=== PATIENT | female | born 1960 ===

== ENCOUNTER 2017-02-07 15:41 | Emergency (ER) | payer OTHER ==
[2017-02-07 15:41] VITALS: BMI 19.2
[2017-02-07 15:55] VITALS: TEMP 97.6
[2017-02-07] MEDS ORDERED: Sodium Chloride 0.9% 1,000 ML IV STA (16:25)
[2017-02-07 16:41] LABS: BASO # 0.04 K/mm3 (0.0-2.0); BASO % 0.6 % (0.0-3.0); EOS # 0.1 (0.0-0.7); EOS % 1.3 % (1.5-5.0); GRAN # 3.85 (1.4-6.5); GRAN % 60.7 % (50.0-68.0); HEMATOCRIT 39.1 % (36.0-48.0); LYMPH # 1.9 (1.2-3.4); LYMPH % 30.3 % (22.0-35.0); MEAN CELL VOLUME 89.9 fl (80.0-105.0); MEAN CORPUSCULAR HEMOGLOBIN 29.9 pg (25.0-35.0); MEAN CORPUSCULAR HGB CONC 33.2 g/dl (31.0-37.0); MEAN PLATELET VOLUME 10.6 fl (7.0-11.0); MONO # 0.5 (0.1-0.6); MONO % 7.1 % (1.0-6.0); RED CELL DISTRIBUTION WIDTH 13.2 % (11.5-14.5); WHITE BLOOD COUNT 6.3 10^3/ul (4.5-11.0)
[2017-02-07 16:50] LABS: ALB/GLOB RATIO 1.5 (1.1-1.8); ALKALINE PHOSPHATASE 86 U/L (38-126); ALT/SGPT 26 U/L (7-56); AST/SGOT 32 U/L (14-36); BILIRUBIN,TOTAL 0.6 mg/dL (0.2-1.3); BLOOD UREA NITROGEN 16 mg/dL (7-21); CALCIUM 9.9 mg/dL (8.4-10.5); CARBON DIOXIDE 30 mmol/L (21-33); CHLORIDE 103 mmol/L (98-107); GFR AFRICAN-AMERICAN > 60; GLUCOSE,RANDOM 89 mg/dL (70-110); LIPASE 128 U/L (23-300); POTASSIUM 4.5 mmol/L (3.6-5.0); SODIUM 140 mmol/L (132-148); TOTAL PROTEIN 7.5 g/dL (5.8-8.3)
[2017-02-07 16:58] LABS: INR 1.07 (0.93-1.08); PARTIAL THROMBOPLASTIN TIME 29.6 Seconds (25.1-36.5)
[2017-02-07 17:10] LABS: PH,URINE 6.5 (4.7-8.0); URINE BILIRUBIN NEGATIVE (NEGATIVE); URINE BLOOD TRACE-INTACT (NEGATIVE); URINE GLUCOSE (UA) NEGATIVE (NEGATIVE); URINE KETONE NEGATIVE (NEGATIVE); URINE LEUKOCYTE ESTERASE NEGATIVE Leu/uL (NEGATIVE); URINE PROTEIN NEGATIVE mg/dL (<30 mg/dL); URINE UROBILINOGEN 0.2 E.U./dL (<1 E.U./dL)
[2017-02-07 17:13] LABS: URINE APPEARANCE CLEAR (CLEAR); URINE COLOR YELLOW (YELLOW)
--- NOTE | 2017-02-07 17:14 | ED PDOC ---
Arrival/HPI - General Chief Complaint: Abdominal Pain Time Seen by Provider: 02/07/17 15:42 Historian: Patient - History of Present Illness Narrative History of Present Illness (Text): 02/07/17 17:10 56 yo F complains of 2 week history of constant gradually increasing right lower quadrant abdominal pain which radiates to the right mid back, associated with nausea, and an episode of mucus like bright red rectal bleeding 2 weeks ago and 2 episodes today prompting concern and evaluation in the emergency room. Otherwise: (-) vomiting, (-) diarrhea, (-) fever, (-) melena, (-) urinary symptoms, (-) CP, (-) SOB, (-) trauma. Has history of prior abdominal surgery - 2 c-sections. PMD Clinic Past Medical History - Provider Review Nursing Documentation Reviewed: Yes - Past History Past History: No Previous - Infectious Disease Hx of Infectious Diseases: None - Tetanus Immunization Tetanus Immunization: Unknown - Past Medical History Past Medical History: No Previous - Psychiatric Hx Depression: No Hx Emotional Abuse: No Hx Physical Abuse: No Hx Substance Use: No - Past Surgical History Past Surgical History: No Previous - Surgical History Hx Section: Yes (x3) - Suicidal Assessment Feels Threatened In Home Enviroment: No Family/Social History - Physician Review Nursing Documentation Reviewed: Yes Family/Social History: No Known Family HX Smoking Status: Never Smoked Hx Alcohol Use: No Hx Substance Use: No Hx Substance Use Treatment: No Allergies/Home Meds Allergies/Adverse Reactions: Allergies No Known Allergies Allergy (Verified 02/07/17 15:49) Review of Systems - Review of Systems Constitutional: Normal. absent: Fatigue, Weight Change, Fevers Respiratory: Normal. absent: SOB, Cough, Sputum Cardiovascular: Normal. absent: Chest Pain, Palpitations, Edema Gastrointestinal: Normal, Abdominal Pain, Nausea, Hematochezia. absent: Constipation, Diarrhea, Vomiting Genitourinary Female: Normal. absent: Dysuria, Frequency, Hematuria, Vaginal Discharge Musculoskeletal: Normal. absent: Arthralgias, Back Pain, Neck Pain Skin: Normal. absent: Rash, Pruritis, Skin Lesions Neurological: Normal. absent: Headache, Dizziness, Focal Weakness Physical Exam - Physical Exam Narrative Physical Exam (Text): 02/07/17 17:15 GENERAL APPEARANCE: Patient is awake, alert, oriented x 3, in mild painful distress. SKIN: Warm, dry; (-) cyanosis. EYES: (-) conjunctival pallor, (-) scleral icterus. ENMT: Mucous membranes moist. NECK: (-) tenderness, (-) stiffness, (-) lymphadenopathy. CHEST AND RESPIRATORY: (-) rales, (-) rhonchi, (-) wheezes; breath sounds equal bilaterally. HEART AND CARDIOVASCULAR: (-) irregularity; (-) murmur, (-) gallop. ABDOMEN AND GI: (-) distention. Bowel sounds active; (+) mild RLQ tenderness, (-) guarding, (-) rebound, (-) palpable masses, (+) R CVA tenderness. RECTAL : (+) 2 small non-thrombosed hemorrhoids at 6 o'clock, (-) tenderness, (- ) mass, (-) stool impaction. Stool greenish brown in color, guiaic (-). Female EMT pattern marker was present during the entire exam. EXTREMITIES: (-) deformity, (-) edema, (+) distal pulses. NEURO AND PSYCH: Mental status as above; (-) focal findings. Vital Signs Temp Pulse Resp BP Pulse Ox 02/08/17 00:00 82 18 98 02/07/17 17:59 59 L 16 114/71 98 02/07/17 15:54 97.6 F 65 16 109/63 100 Medical Decision Making ED Course and Treatment: 02/07/17 17:13 56 yo F complains of 2 week history of right lower quadrant abdominal pain which radiates to the right mid back, associated with nausea, decreased appetite , and an episode of mucus like bright red rectal bleeding 2 weeks ago and 2 episodes today. Patient is refusing analgesics at this time. DDx: GI bleed, diverticulosis, diverticulitis Previous medcial records reviewed : patient was seen in this ED on 12/01/15 for abd pain / UTI, she had a CT of the abdomen which showed no evidence of appendicitis, negative CT. Plan: -- Labs -- IV -- Urinalysis -- Pepcid / Zofran -- Reassess and disposition -- CT AP w/ PO and IV contrast 02/07/17 17:30 Labs reviewed and are wnl, hgb 13. On re-evaluation, patient is resting comfortably in bed in no acute distress. Patient offers no additional complaints at this time. She is tolerating by mouth contrast. CT abdomen and pelvis still pending. CT results reviewed and shows no evidence of acute appendicitis, mild constipation, otherwise no other acute findings. Diagnostic results d/w the patient in great detail. On re-evaluation, patient is resting in bed comfortably in no acute distress. Reports no significant abdominal pain at this time. On exam, patient is in no distress, breathing easy and unlabored, lungs CTA, cardiac RRR, abdomen is soft and non-tender. Patient advised to follow up with her pmd in 1-2 days without fail. Advised to take medications as prescribed. Return to the emergency room at any time for any new or worsening symptoms. Patient states she fully agrees with and understands discharge instructions. States that she agrees with the plan and disposition. Verbalized and repeated discharge instructions and plan. I have given the patient opportunity to ask any additional questions. - Lab Interpretations Lab Results: 02/07/17 16:00 02/07/17 16:00 Lab Results 02/07/17 16:50: Urine Color Yellow, Urine Appearance Clear, Urine pH 6.5, Ur Specific [place] <= 1.005, Urine Protein Negative, Urine Glucose (UA) Negative, Urine Ketones Negative, Urine Blood Trace-intact H, Urine Nitrate Negative, Urine Bilirubin Negative, Urine Urobilinogen 0.2, Ur Leukocyte Esterase Negative , Urine RBC 0 - 2, Urine WBC 1 - 3, Ur Epithelial Cells 1 - 3, Urine Bacteria Few 02/07/17 16:00: Sodium 140, Potassium 4.5, Chloride 103, Carbon Dioxide 30, Anion Gap 12, BUN 16, Creatinine 0.8, Est GFR ( Amer) > 60, Est GFR (Non- Af Amer) > 60, Random Glucose 89, Calcium 9.9, Total Bilirubin 0.6, AST 32, ALT 26, Alkaline Phosphatase 86, Total Protein 7.5, Albumin 4.5, Globulin 3.0, Albumin/Globulin Ratio 1.5, Lipase 128 02/07/17 16:00: PT 11.7, INR 1.07, APTT 29.6 02/07/17 16:00: WBC 6.3, RBC 4.35, Hgb 13.0, Hct 39.1, MCV 89.9, MCH 29.9, MCHC 33.2, RDW 13.2, Plt Count 222, MPV 10.6, Gran % 60.7, Lymph % (Auto) 30.3, Cecil % (Auto) 7.1 H, Eos % (Auto) 1.3 L, Baso % (Auto) 0.6, Gran # 3.85, Lymph # 1.9 , Cecil # 0.5, Eos # 0.1, Baso # 0.04 - RAD Interpretation Narrative RAD Interpretations (Text): 02/07/17 23:24 CT A/P w/ PO and IV contrast : FINDINGS: The liver is normal. The spleen is normal. The pancreas is normal. No gallstones. No hydronephrosis or perinephric stranding. The colon is distended with stool consistent with mild constipation. The appendix is identified on coronal series 602 images 27 through 34, axial images 156 through 164. It measures 6-7 mm which is mildly dilated although is unchanged from prior (coronal images 30 through 50, Nov 22 study). There is fluid throughout the lumen with only a single air foci. There is slightly prominent wall enhancement. There is a questionable punctate calcification image 160. There is no stranding in the surrounding fat. The uterus and ovaries appear normal. IMPRESSION: Mildly dilated appendix (6 - 7 mm) unchanged in caliber from prior study, thus may represent the patient's baseline. The fluid filled lumen does not fill with contrast, a finding that is concerning for obstruction. There is no stranding in the periappendiceal fat identified at this time. Thus findings concerning for, although not completely diagnostic of, early appendicitis. Mild constipation. Dictated and Authenticated by: Amber Campbell MD 02/07/2017 10:58 PM Eastern Time ([place] & [place]) Radiology Orders: 02/07/17 16:25 ABD PELVIS PO & IV CONTRAST [CT] Stat - Medication Orders Current Medication Orders: Discontinued Medications Famotidine (Pepcid) 20 mg IVP STAT STA Stop: 02/07/17 16:26 Last Admin: 02/07/17 16:35 Dose: 20 mg IVP Administration Document 02/07/17 16:35 CNR (Rec: 02/07/17 16:35 CNR [facility] [id number]) Charges for Administration # of IVP Administrations 1 Sodium Chloride (Sodium Chloride 0.9%) 1,000 mls @ 1,000 mls/hr IV .Q1H STA Stop: 02/07/17 17:24 Last Admin: 02/07/17 16:36 Dose: 1,000 mls/hr eMAR Start Stop Document 02/07/17 16:36 CNR (Rec: 02/07/17 16:36 [facility]NR [facility] [id number] Intravenous Solution Start Date 02/07/17 Start Time 16:36 Ondansetron HCl (Zofran Inj) 4 mg IVP STAT STA Stop: 02/07/17 16:26 Last Admin: 02/07/17 16:35 Dose: 4 mg IVP Administration Document 02/07/17 16:35 CNR (Rec: 02/07/17 16:36 CNR [facility] [id number] Charges for Administration # of IVP Administrations 1 - 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 Disposition/Present on Arrival - Present on Arrival Any Indicators Present on Arrival: No History of DVT/PE: No History of Uncontrolled Diabetes: No Urinary Catheter: No History of Decub. Ulcer: No History Surgical Site Infection Following: None - Disposition Have Diagnosis and Disposition been Completed?: Yes Diagnosis: Abdominal pain, Rectal bleeding Disposition: HOME/ ROUTINE Disposition Time: 23:00 Patient Plan: Discharge Condition: STABLE Discharge Instructions (ExitCare): Rectal Bleeding (ED), Abdominal Pain (ED) Print Language: MACEDONIAN Additional Instructions: Thank you for letting us take care of you today. You were treated for abdominal pain, rectal bleeding, to consider internal hemorrhoids. The emergency medical care you received today was directed at your acute symptoms. If you were prescribed any medication, please fill it and take as directed. It may take several days for your symptoms to resolve. Return to the Emergency Department if your symptoms worsen, do not improve, or if you have any other problems. Please contact your doctor in 2 days for re-evaluation and follow up. Bring any paperwork you were given at discharge with you along with any medications you are taking to your follow up visit. Our treatment cannot replace ongoing medical care by a primary care provider (PCP) outside of the emergency department. Thank you for allowing the [facility] team to be part of your care today. If you had a CT scan: A Radiologist will review the ED reading if any change in treatment is needed we will contact you. If you had a urine culture: It will take several days for the results, if any change in treatment is needed we will contact you. Prescriptions: Hard Fat/Phenylephrine [place] [Anusol Suppository] 1 sup RC BID #28 sup Forms: [facility] (Indian), WORK NOTE
[2017-02-07 17:25] LABS: URINE BACTERIA FEW (NEG); URINE RBC 0 - 2 /hpf (0-2)
[2017-02-07 18:00] VITALS: BP 114/71; O2SAT 98
[2017-02-07] MEDS ORDERED: Iohexol 240 (50 ml) ONE (18:46)
[2017-02-07] MEDS ORDERED: Iohexol 350 MG/100 ML VIAL ONE (20:55)
--- NOTE | 2017-02-07 22:59 | CT ---
EXAM: CT Abdomen and Pelvis With Intravenous Contrast EXAM DATE/TIME: 02/07/2017 4:25 PM CLINICAL HISTORY: 56 years old, female; Pain; Abdominal pain; Localized; Right lower quadrant (rlq); Prior surgery; Surgery date: 6+ months; Surgery type: ; Additional info: Rlq pain, rectal bleeding TECHNIQUE: Axial computed tomography images of the abdomen and pelvis with intravenous contrast. All CT scans at this facility use one or more dose reduction techniques, viz.: automated exposure control; ma/kV adjustment per patient size (including targeted exams where dose is matched to indication; i.e. head); or iterative reconstruction technique. Coronal and sagittal reformatted images were created and reviewed. CONTRAST: 100 mL of omni 350 administered intravenously. COMPARISON: CT - ABD PELVIS IV CONTRAST ONLY 2015-12-01 12:46 FINDINGS: The liver is normal. The spleen is normal. The pancreas is normal. No gallstones. No hydronephrosis or perinephric stranding. The colon is distended with stool consistent with mild constipation. The appendix is identified on coronal series 602 images 27 through 34, axial images 156 through 164. It measures 6-7 mm which is mildly dilated although is unchanged from prior (coronal images 30 through 50, Nov 22 study). There is fluid throughout the lumen with only a single air foci. There is slightly prominent wall enhancement. There is a questionable punctate calcification image 160. There is no stranding in the surrounding fat. The uterus and ovaries appear normal. IMPRESSION: Mildly dilated appendix (6 - 7 mm) unchanged in caliber from prior study, thus may represent the patient's baseline. The fluid filled lumen does not fill with contrast, a finding that is concerning for obstruction. There is no stranding in the periappendiceal fat identified at this time. Thus findings concerning for, although not completely diagnostic of, early appendicitis. Mild constipation.
[2017-02-08 00:02] VITALS: PULSE 82; RESP 18
== END 2017-02-08 | disposition home or self-care (01) ==
LOC: ED 15:41
DX: R10.31 Right lower quadrant pain (principal); K62.5 Hemorrhage of anus and rectum
CPT/HCPCS: 74177; 80053; 81001; 83690; 85025; 85610; 85730; 87086; 96374; 96375; 99284; J2405; J7040; Q9966; Q9967

== ENCOUNTER 2017-05-23 15:11 | Emergency (ER) | payer OTHER ==
[2017-05-23 15:12] VITALS: BMI 19.2
--- NOTE | 2017-05-23 15:20 | ED PDOC ---
Arrival/HPI - General Chief Complaint: Cough, Cold, Congestion Time Seen by Provider: 05/23/17 15:19 Historian: Patient - History of Present Illness Narrative History of Present Illness (Text): 05/23/17 15:20 56 y/o female, pmh including UTI/hyperlipidemia, post menopausal, nkda, c/o coughing with fatigue for the past 2-3 days (pt disagreed with the triage note) . Pt. stated that she has productive coughing, associated with fatigue, no night sweat, no rash, no chest pain or shortness of breath, no palpitation, no dizziness, no numbness or tingling, no other medical or psychological complaints. Past Medical History - Provider Review Nursing Documentation Reviewed: Yes - Past History Past History: No Previous - Infectious Disease Hx of Infectious Diseases: None - Tetanus Immunization Tetanus Immunization: Unknown - Reproductive Menopause: Yes - Past Medical History Past Medical History: No Previous - Cardiac Hx Cardiac Disorders: No - Pulmonary Hx Respiratory Disorders: No - Neurological Hx Neurological Disorder: No - HEENT Hx HEENT Disorder: No - Renal Hx Renal Disorder: No - Endocrine/Metabolic Hx Endocrine Disorders: No - Hematological/Oncological Hx Blood Disorders: No - Integumentary Hx Dermatological Disorder: No - Musculoskeletal/Rheumatological Hx Musculoskeletal Disorders: No - Gastrointestinal Hx Gastrointestinal Disorders: No - Genitourinary/Gynecological Hx Genitourinary Disorders: Yes Hx Urinary Tract Infection: Yes - Psychiatric Hx Psychophysiologic Disorder: No Hx Depression: No Hx Emotional Abuse: No Hx Physical Abuse: No Hx Substance Use: No - Past Surgical History Past Surgical History: No Previous - Surgical History Hx Section: Yes (x3) - Suicidal Assessment Feels Threatened In Home Enviroment: No Family/Social History - Physician Review Nursing Documentation Reviewed: Yes Family/Social History: Unknown Family HX Smoking Status: Never Smoked Hx Alcohol Use: No Hx Substance Use: No Hx Substance Use Treatment: No Allergies/Home Meds Allergies/Adverse Reactions: Allergies No Known Allergies Allergy (Verified 05/23/17 15:13) Review of Systems - Review of Systems Constitutional: Fatigue. absent: Fevers Eyes: absent: Vision Changes ENT: absent: Hearing Changes Respiratory: Cough. absent: SOB Cardiovascular: absent: Chest Pain Gastrointestinal: absent: Abdominal Pain, Diarrhea, Nausea, Vomiting Musculoskeletal: absent: Arthralgias, Back Pain Skin: absent: Rash, Pruritis Neurological: absent: Headache, Dizziness Psychiatric: absent: Anxiety, Depression, Suicidal Ideation Physical Exam Vital Signs Reviewed: Yes Vital Signs Temp Pulse Resp BP Pulse Ox 05/23/17 15:18 99.3 F 86 17 117/76 97 Temperature: Afebrile Blood Pressure: Normal Pulse: Regular Respiratory Rate: Normal Appearance: Positive for: Well-Appearing, Non-Toxic, Comfortable Pain Distress: Mild Mental Status: Positive for: Alert and Oriented X 3 - Systems Exam Head: Present: Atraumatic, Normocephalic Pupils: Present: PERRL Extroacular Muscles: Present: EOMI Conjunctiva: Present: Normal Mouth: Present: Moist Mucous Membranes Neck: Present: Normal Range of Motion Respiratory/Chest: Present: Clear to Auscultation, Good Air Exchange. No: Respiratory Distress, Accessory Muscle Use Cardiovascular: Present: Regular Rate and Rhythm, Normal S1, S2, Other (no pedal edema). No: Murmurs Abdomen: Present: Normal Bowel Sounds. No: Tenderness, Distention, Peritoneal Signs Back: Present: Normal Inspection Upper Extremity: Present: Normal Inspection. No: Cyanosis, Edema Lower Extremity: Present: Normal Inspection. No: Edema Neurological: Present: GCS=15, CN II-XII Intact, Speech Normal Skin: Present: Warm, Dry, Normal Color. No: Rashes Psychiatric: Present: Alert, Oriented x 3, Normal Insight, Normal Concentration Medical Decision Making ED Course and Treatment: 05/23/17 15:37 -chest xray -observe and reassess 05/23/17 17:12 -Discharge home with tamiflu, tessalon, tylenol, stay hydrated, bed rest, follow up with your own pmd within 2 days, return to the ER for any new or worsening signs or symptoms. - RAD Interpretation Radiology Orders: 05/23/17 15:26 CHEST TWO VIEWS (PA/LAT) [RAD] Stat HISTORY: cough x 2-3 days COMPARISON: No prior. TECHNIQUE: Chest PA and lateral FINDINGS: LUNGS: No active pulmonary disease. PLEURA: No significant pleural effusion identified. No pneumothorax apparent. CARDIOVASCULAR: Normal. OSSEOUS STRUCTURES: No significant abnormalities. VISUALIZED UPPER ABDOMEN: Normal. OTHER FINDINGS: None. IMPRESSION: No active disease. 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 Disposition/Present on Arrival - Present on Arrival Any Indicators Present on Arrival: No History of DVT/PE: No History of Uncontrolled Diabetes: No Urinary Catheter: No History of Decub. Ulcer: No History Surgical Site Infection Following: None - Disposition Have Diagnosis and Disposition been Completed?: Yes Diagnosis: Flu-like symptoms Disposition: HOME/ ROUTINE Disposition Time: 15:37 Patient Plan: Discharge Condition: GOOD Additional Instructions: -Discharge home with tamiflu, tessalon, tylenol, stay hydrated, bed rest, follow up with your own pmd within 2 days, return to the ER for any new or worsening signs or symptoms. Prescriptions: Acetaminophen [Tylenol 325mg tab] 2 tab PO QID PRN #30 tab PRN Reason: Other Benzonatate [Tessalon Perles] 100 mg PO TID PRN #30 sgl PRN Reason: Other Oseltamivir Phosphate [Tamiflu] 75 mg PO BID #10 capsule Referrals: [facility] [place]] - Follow up with primary Forms: [facility] ([place]), WORK NOTE
[2017-05-23 15:24] VITALS: TEMP 99.3
--- NOTE | 2017-05-23 16:35 | RAD ---
HISTORY: cough x 2-3 days COMPARISON: No prior. TECHNIQUE: Chest PA and lateral FINDINGS: LUNGS: No active pulmonary disease. PLEURA: No significant pleural effusion identified. No pneumothorax apparent. CARDIOVASCULAR: Normal. OSSEOUS STRUCTURES: No significant abnormalities. VISUALIZED UPPER ABDOMEN: Normal. OTHER FINDINGS: None. IMPRESSION: No active disease.
[2017-05-23 17:20] VITALS: BP 114/72; PULSE 80; RESP 18; O2SAT 98
== END 2017-05-23 17:27 | disposition home or self-care (01) ==
LOC: ED 15:11
DX: J11.1 Influenza due to unidentified influenza virus with other respiratory manifestations (principal)

== ENCOUNTER 2017-05-26 13:16 | Emergency (ER) | payer OTHER ==
[2017-05-26 13:42] VITALS: TEMP 99.4; O2SAT 100; BMI 18.6
[2017-05-26] MEDS ORDERED: Sodium Chloride 0.9% 1,000 ML IV STA (14:21)
--- NOTE | 2017-05-26 14:25 | ED PDOC ---
Arrival/HPI - General Chief Complaint: Flu-like Symptoms Time Seen by Provider: 05/26/17 14:20 Historian: Patient - History of Present Illness Narrative History of Present Illness (Text): 05/26/17 14:23 pt p/w + 3-4 days onset of coughing/sore throat, + progressively worsening body pain/frontal headaches, + nasal congestion/clear rhinorrhea; coughing is non- productive; pt states she started to experience headaches yesterday; no neck pain, + diffuse body malaise, no cp/sob/palpitations, no abd pain, + nausea, no vomiting, no urinary/bowel changes, no rashes, no fall/trauma/travel, + sick contact; pt states she did not try any OTC medications (no tylenol/motrin); pt + lightheadedness/dizziness, no other complaints; pt is here for further eval pt denied slurr speech pt denied facial numbness/tingling pt was seen in the ED 3 days ago for coughing and prescribed Tamiflu, did not fill the prescription b/c it was expensive Time/Duration: < week Symptom Onset: Gradual Symptom Course: Worsening Quality: Aching, Cramping Severity Level: Severe Activities at Onset: Rest Context: Home Past Medical History - Provider Review Nursing Documentation Reviewed: Yes - Travel History Have you recently traveled outside [place] w/in the past 3 mons?: No - Past History Past History: No Previous - Infectious Disease Hx of Infectious Diseases: None - Tetanus Immunization Tetanus Immunization: Unknown - Past Medical History Past Medical History: No Previous - Cardiac Hx Cardiac Disorders: No - Pulmonary Hx Respiratory Disorders: No - Neurological Hx Neurological Disorder: No Other/Comment: hx of sinus disease - HEENT Hx HEENT Disorder: No - Renal Hx Renal Disorder: No - Endocrine/Metabolic Hx Endocrine Disorders: No - Hematological/Oncological Hx Blood Disorders: No - Integumentary Hx Dermatological Disorder: No - Musculoskeletal/Rheumatological Hx Musculoskeletal Disorders: No - Gastrointestinal Hx Gastrointestinal Disorders: No - Genitourinary/Gynecological Hx Genitourinary Disorders: Yes Hx Urinary Tract Infection: Yes - Psychiatric Hx Psychophysiologic Disorder: No Hx Depression: No Hx Emotional Abuse: No Hx Physical Abuse: No Hx Substance Use: No - Past Surgical History Past Surgical History: No Previous - Surgical History Hx Section: Yes (x3) - Suicidal Assessment Feels Threatened In Home Enviroment: No Family/Social History - Physician Review Nursing Documentation Reviewed: Yes Family/Social History: No Known Family HX Smoking Status: Never Smoked Hx Alcohol Use: No Hx Substance Use: No Hx Substance Use Treatment: No Allergies/Home Meds Allergies/Adverse Reactions: Allergies No Known Allergies Allergy (Verified 05/26/17 13:42) Review of Systems - Review of Systems Constitutional: Fevers Eyes: Normal ENT: Sore Throat Respiratory: Cough. absent: SOB, Wheezing Cardiovascular: Normal Gastrointestinal: Nausea Genitourinary Female: Normal Musculoskeletal: Arthralgias, Back Pain Skin: Normal Neurological: Headache, Dizziness Endocrine: Normal Hemo/Lymphatic: Normal Psychiatric: Normal Physical Exam Vital Signs Reviewed: Yes Vital Signs Temp Pulse Resp BP Pulse Ox 05/26/17 16:00 89 18 115/71 100 05/26/17 13:39 99.4 F 96 H 18 113/78 100 Temperature: Other (elevated temp) Blood Pressure: Normal Pulse: Regular Respiratory Rate: Normal Appearance: Positive for: Well-Appearing, Other (Uncomfortable, sitting on a chair, appearing tired/fatigued, cooperative, NAD, follows command with ease) Pain Distress: None Mental Status: Positive for: Alert and Oriented X 3 - Systems Exam Head: Present: Atraumatic, Normocephalic Pupils: Present: PERRL, Other (no gross photophobia, sclera anicteric, no nystagmus; visual field intact b/l) Extroacular Muscles: Present: EOMI Conjunctiva: Present: Normal Ears: Present: Normal Mouth: Present: Dry, Normal Teeth, Other (no drooling/stridor, uvula/tongue are midline, no exudate/lesions, no dysphonia; + occasional coughing is noted) Pharnyx: Present: Normal, Other (uvula/tongue are midline) Nose (External): Present: Atraumatic Nose (Internal): Present: Normal Inspection Neck: Present: Normal Range of Motion, Trachea Midline, Other (no step off, no nuchal rigidity, intact ROM, no meningeal signs). No: MIDLINE TENDERNESS Respiratory/Chest: Present: Clear to Auscultation, Good Air Exchange, Other ( CTA b/l, no w/r/r, no accessory muscle use noted, no tachypenia, no retractions) Cardiovascular: Present: Regular Rate and Rhythm, Normal S1, S2. No: Murmurs Abdomen: Present: Normal Bowel Sounds, Other (well nourished patient, no midline /focal tenderness, no valdes's sign, no mcburney's point tenderness, no masses/ rebound/guarding/rigidity) Back: Present: Normal Inspection. No: CVA Tenderness, Midline Tenderness Upper Extremity: Present: Normal Inspection, Normal ROM, NORMAL PULSES, Neurovascularly Intact Lower Extremity: Present: Normal Inspection, NORMAL PULSES, Normal ROM, Neurovascularly Intact, Other (+ ambulatory, neurovasc intact b/l). No: CALF TENDERNESS, Ying's Sign Neurological: Present: GCS=15, CN II-XII Intact, Speech Normal, Other (NIH stroke scale ~ 0) Skin: Present: Warm, Dry, Other (cap refill ~ 1 sec, no ulcerations, no petechiae; no rashes) Psychiatric: Present: Alert, Oriented x 3 Medical Decision Making ED Course and Treatment: 05/26/17 14:36 Impression: headache, likely FLu caused dehydration/body fatigue/coughing i have consider all the differential diagnosis regarding pt's chief medical complaints/clinical findings, including but are not limited to: flu like syndrome A/P: headache, likely flu caused; + dehydration - iv f - labs - xray? - observe - supportive care 05/26/2017 16:04 Chest X-ray IMPRESSION: No active disease. Dictator: Florencio Fitzgerald MD 05/26/17 16:31 pt is feeling improved pt states no more headaches, at most current headache is ~ 1/10 pt is not in any distress 05/26/17 16:38 pt tolerated po pt is made aware of her medical results pt is encouraged continued fluid hydration and to practice safe hyigene pt will f/u as directed pt will be discharged home Re-evaluation Time: 16:31 Reassessment Condition: Improved - Lab Interpretations Lab Results: 05/26/17 14:30 05/26/17 14:30 Lab Results 05/26/17 14:50: Urine Color Yellow, Urine Appearance Slight-cloudy, Urine pH 6.0 , Ur Specific [place] 1.025, Urine Protein Negative, Urine Glucose (UA) Negative , Urine Ketones Trace H, Urine Blood Small H, Urine Nitrate Positive H, Urine Bilirubin Negative, Urine Urobilinogen 0.2, Ur Leukocyte Esterase Negative, Urine RBC 1 - 3, Urine WBC 2 - 5, Ur Epithelial Cells 0 - 2, Urine Bacteria Mod 05/26/17 14:30: Sodium 141, Potassium 4.1, Chloride 103, Carbon Dioxide 27, Anion Gap 16, BUN 9, Creatinine 0.6 L, Est GFR ( Amer) > 60, Est GFR (Non -Af Amer) > 60, Random Glucose 104, Calcium 9.5, Total Bilirubin 0.5, AST 35, ALT 25, Alkaline Phosphatase 79, Total Protein 7.9, Albumin 4.6, Globulin 3.3, Albumin/Globulin Ratio 1.4 05/26/17 14:30: WBC 4.7 D, RBC 4.59, Hgb 13.9, Hct 42.1, MCV 91.7, MCH 30.3, MCHC 33.0, RDW 13.1, Plt Count 203, MPV 10.6, Gran % 61.9, Lymph % (Auto) 26.5, [place] % (Auto) 8.7 H, Eos % (Auto) 2.5, Baso % (Auto) 0.4, Gran # 2.91, Lymph # ( Auto) 1.3, [place] # (Auto) 0.4, Eos # (Auto) 0.1, Baso # (Auto) 0.02 I have reviewed the lab results: Yes Interpretation: Abnormal lab values (+ nitrate with UA, unlikely UA, will continue to monitor with pt's UCx) - RAD Interpretation Narrative RAD Interpretations (Text): 05/26/17 16:33 HISTORY: sob/fever/cough, likely had flu COMPARISON: 05/23/2017 TECHNIQUE: Chest PA and lateral FINDINGS: LUNGS: No active pulmonary disease. PLEURA: No significant pleural effusion identified. No pneumothorax apparent. CARDIOVASCULAR: Normal. OSSEOUS STRUCTURES: No significant abnormalities. VISUALIZED UPPER ABDOMEN: Normal. OTHER FINDINGS: None. IMPRESSION: No active disease. 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 Yes Sleep Is patient sleeping during reassessment? No Presence of Pain Presence of Pain Yes Sodium Chloride (Sodium Chloride 0.9%) 1,000 mls @ 999 mls/hr IV .Q1H1M STA Stop: 05/26/17 15:21 Last Admin: 05/26/17 14:46 Dose: 999 mls/hr eMAR Start Stop Document 05/26/17 14:46 SF (Rec: 05/26/17 14:46 SF [facility] [id number]) Intravenous Solution Start Date 05/26/17 Start Time 14:46 End Date 05/26/17 End time 15:47 Total Infusion Time 61 Ketorolac Tromethamine (Toradol) 30 mg IVP STAT STA Stop: 05/26/17 14:21 Last Admin: 05/26/17 14:54 Dose: 30 mg MAR Pain Assessment Document 05/26/17 14:54 SF (Rec: 05/26/17 14:54 SF [facility] [email or web address]) Pain Reassessment Is this a pain reassessment? Yes Sleep Is patient sleeping during reassessment? No Presence of Pain Presence of Pain Yes IVP Administration Document 05/26/17 14:54 SF (Rec: 05/26/17 14:54 SF [facility] [email or web address]) Charges for Administration # of IVP Administrations 1 Metoclopramide HCl (Reglan) 10 mg IVP STAT STA Stop: 05/26/17 14:21 Last Admin: 05/26/17 14:53 Dose: 10 mg IVP Administration Document 05/26/17 14:53 SF (Rec: 05/26/17 14:53 SF [facility] [place]) Charges for Administration # of IVP Administrations 1 Disposition/Present on Arrival - Present on Arrival Any Indicators Present on Arrival: No History of DVT/PE: No History of Uncontrolled Diabetes: No Urinary Catheter: No History of Decub. Ulcer: No History Surgical Site Infection Following: None - Disposition Have Diagnosis and Disposition been Completed?: Yes Diagnosis: Headache, Flu-like symptoms, Dehydration Disposition: HOME/ ROUTINE Disposition Time: 16:34 Patient Plan: Discharge Patient Problems: Current Active Problems Problem Status Onset Dehydration Acute Flu-like symptoms Acute Headache Acute Condition: STABLE Discharge Instructions (ExitCare): Headache, Adult, Dehydration, Adult (DC), Viral Syndrome (DC) Print Language: NIGERIEN Additional Instructions: Make sure to see your doctor in 1-2 days DRINK PLENTY OF FLUIDS take your medications as prescribed RETURN TO ED IF worse pain, cant breath, persistent vomiting, high fever >101- 102 for hours, altered behavior, unable to urinate, heavy/persistent bleeding, passing out, chest pain, or other medical emergencies Prescriptions: Ibuprofen [Motrin] 600 mg PO TID PRN #30 tab PRN Reason: Pain, Moderate (4-7) Metoclopramide HCl [Reglan] 10 mg PO TID PRN #30 tablet PRN Reason: Nausea/Vomiting Referrals: Danae Braga APN-C [Primary Care Provider] - Follow up with primary Forms: [employer] ([place]), WORK NOTE
[2017-05-26] MEDS ORDERED: Apap-Butalbital-Caffeine 325-50-40mg Tab PO ONE (14:37)
[2017-05-26 15:10] LABS: ALB/GLOB RATIO 1.4 (1.1-1.8); ALBUMIN 4.6 g/dL (3.0-4.8); ALT/SGPT 25 U/L (7-56); AST/SGOT 35 U/L (14-36); BLOOD UREA NITROGEN 9 mg/dL (7-21); CALCIUM 9.5 mg/dL (8.4-10.5); GFR AFRICAN-AMERICAN > 60; GFR NON-AFRICAN AMERICAN > 60
[2017-05-26 15:12] LABS: URINE APPEARANCE SLIGHT-CLOUDY (CLEAR); URINE BILIRUBIN NEGATIVE (NEGATIVE); URINE BLOOD SMALL (NEGATIVE); URINE COLOR YELLOW (YELLOW); URINE GLUCOSE (UA) NEGATIVE (NEGATIVE); URINE LEUKOCYTE ESTERASE NEGATIVE Leu/uL (NEGATIVE); URINE NITRATE POSITIVE (NEGATIVE); URINE PROTEIN NEGATIVE mg/dL (<30 mg/dL); URINE UROBILINOGEN 0.2 E.U./dL (<1 E.U./dL)
[2017-05-26 15:16] LABS: BASO # 0.02 K/mm3 (0.0-2.0); BASO % 0.4 % (0.0-3.0); EOS # 0.1 (0.0-0.7); EOS % 2.5 % (1.5-5.0); GRAN # 2.91 (1.4-6.5); GRAN % 61.9 % (50.0-68.0); HEMOGLOBIN 13.9 g/dL (12.0-16.0); LYMPH # 1.3 (1.2-3.4); LYMPH % 26.5 % (22.0-35.0); MEAN CELL VOLUME 91.7 fl (80.0-105.0); MEAN CORPUSCULAR HEMOGLOBIN 30.3 pg (25.0-35.0); MEAN PLATELET VOLUME 10.6 fl (7.0-11.0); MONO # 0.4 (0.1-0.6); MONO % 8.7 % (1.0-6.0); RBC 4.59 10^6/uL (3.5-6.1); RED CELL DISTRIBUTION WIDTH 13.1 % (11.5-14.5); WHITE BLOOD COUNT 4.7 10^3/ul (4.5-11.0)
[2017-05-26 15:23] LABS: URINE BACTERIA MOD (NEG)
[2017-05-26 15:25] LABS: URINE EPITHELIAL CELLS 0 - 2 /hpf (0-5)
--- NOTE | 2017-05-26 16:06 | RAD ---
HISTORY: sob/fever/cough, likely had flu COMPARISON: 05/23/2017 TECHNIQUE: Chest PA and lateral FINDINGS: LUNGS: No active pulmonary disease. PLEURA: No significant pleural effusion identified. No pneumothorax apparent. CARDIOVASCULAR: Normal. OSSEOUS STRUCTURES: No significant abnormalities. VISUALIZED UPPER ABDOMEN: Normal. OTHER FINDINGS: None. IMPRESSION: No active disease.
[2017-05-26 16:49] VITALS: BP 119/75; PULSE 85; RESP 17
== END 2017-05-26 16:45 | disposition home or self-care (01) ==
LOC: ED 13:16
DX: R51 Headache (principal); E86.0 Dehydration; J11.1 Influenza due to unidentified influenza virus with other respiratory manifestations
CPT/HCPCS: 71046; 80053; 81001; 85025; 96361; 96374; 96375; 99284; J1885; J2765; J7040

== ENCOUNTER 2017-06-03 17:51 | Observation (INO) | payer OTHER ==
[2017-06-03 18:12] VITALS: BMI 18.8
[2017-06-03] MEDS ORDERED: Sodium Chloride 0.9% 1,000 ML IV STA (18:18)
--- NOTE | 2017-06-03 18:24 | ED PDOC ---
Arrival/HPI - General Chief Complaint: GI Problem Time Seen by Provider: 06/03/17 17:54 Historian: Patient, Family - History of Present Illness Narrative History of Present Illness (Text): 06/03/17 18:21 56 year old female presents to the Emergency department complaining of vomiting , lower abdominal pain, diarrhea, headache, and mild dysuria since this morning. Vomit is characterized as yellow with chunks of green. Patient was recently seen for influenza and reports her symptoms have not resolved. Patient denies any fever, chills, chest pain, shortness of breath or any other complaints. Time/Duration: 4-6 hours Symptom Onset: Gradual Symptom Course: Unchanged Context: Home Past Medical History - Provider Review Nursing Documentation Reviewed: Yes - Past History Past History: No Previous - Infectious Disease Hx of Infectious Diseases: None - Tetanus Immunization Tetanus Immunization: Unknown - Past Medical History Past Medical History: No Previous - Cardiac Hx Cardiac Disorders: No - Pulmonary Hx Respiratory Disorders: No - Neurological Hx Neurological Disorder: No Other/Comment: hx of sinus disease - HEENT Hx HEENT Disorder: No - Renal Hx Renal Disorder: No - Endocrine/Metabolic Hx Endocrine Disorders: No - Hematological/Oncological Hx Blood Disorders: No - Integumentary Hx Dermatological Disorder: No - Musculoskeletal/Rheumatological Hx Musculoskeletal Disorders: No - Gastrointestinal Hx Gastrointestinal Disorders: No - Genitourinary/Gynecological Hx Genitourinary Disorders: Yes Hx Urinary Tract Infection: Yes - Psychiatric Hx Psychophysiologic Disorder: No Hx Depression: No Hx Emotional Abuse: No Hx Physical Abuse: No Hx Substance Use: No - Past Surgical History Past Surgical History: No Previous - Surgical History Hx Section: Yes (x3) - Anesthesia Hx Anesthesia: Yes Hx Anesthesia Reactions: No Hx Malignant Hyperthermia: No - Suicidal Assessment Feels Threatened In Home Enviroment: No Family/Social History - Physician Review Nursing Documentation Reviewed: Yes Family/Social History: Unknown Family HX Smoking Status: Never Smoked Hx Alcohol Use: No Hx Substance Use: No Hx Substance Use Treatment: No Allergies/Home Meds Allergies/Adverse Reactions: Allergies No Known Allergies Allergy (Verified 05/26/17 13:42) Review of Systems - Physician Review All systems were reviewed & negative as marked: Yes - Review of Systems Constitutional: absent: Fevers Respiratory: absent: SOB Cardiovascular: absent: Chest Pain Gastrointestinal: Abdominal Pain, Diarrhea, Nausea, Vomiting Genitourinary Female: Dysuria (mild) Neurological: Headache Physical Exam Vital Signs Reviewed: Yes Vital Signs Temp Pulse Resp BP Pulse Ox 06/03/17 23:47 98.0 F 67 16 100/66 98 06/03/17 22:00 97.9 F 65 16 103/65 100 06/03/17 20:00 97.8 F 78 16 105/60 99 06/03/17 18:13 97.9 F 74 18 111/70 98 Temperature: Afebrile Blood Pressure: Normal Pulse: Regular Respiratory Rate: Normal Appearance: Positive for: Well-Appearing, Non-Toxic, Comfortable Pain Distress: None Mental Status: Positive for: Alert and Oriented X 3 - Systems Exam Head: Present: Atraumatic, Normocephalic Pupils: Present: PERRL Extroacular Muscles: Present: EOMI Conjunctiva: Present: Normal Mouth: Present: Moist Mucous Membranes Neck: Present: Normal Range of Motion Respiratory/Chest: Present: Clear to Auscultation, Good Air Exchange. No: Respiratory Distress, Accessory Muscle Use Cardiovascular: Present: Regular Rate and Rhythm, Normal S1, S2. No: Murmurs Abdomen: Present: Tenderness (left lower quadrant) Back: Present: Normal Inspection Upper Extremity: Present: Normal Inspection. No: Cyanosis, Edema Lower Extremity: Present: Normal Inspection. No: Edema Neurological: Present: GCS=15, CN II-XII Intact, Speech Normal Skin: Present: Warm, Dry, Normal Color. No: Rashes Psychiatric: Present: Alert, Oriented x 3, Normal Insight, Normal Concentration Medical Decision Making ED Course and Treatment: 06/03/17 18:26 Impression: 56 year old female presents to the Emergency department complaining of vomiting , diarrhea, abdominal pain, headache, and dysuria. Plan: -- Chest xray -- Urinalysis -- Labs -- Toradol, Zofran, Sodium Chloride IV fluids -- Reassess and disposition Prior Visits: Notes and results from previous visits were reviewed. Patient was last seen in the emergency department on 05/26/17 for flu-like symptoms. Patient was diagnosed with Headache, Flu-like symptoms, Dehydration and was discharged home. Progress Notes: 06/04/17 11:38 ct possible early appendicits. discussed with dr scanlon surgery, will obs for surgical eval - Lab Interpretations Lab Results: 06/03/17 19:09 06/03/17 19:09 Lab Results 06/03/17 19:55: Urine Color Yellow, Urine Appearance Sl cloudy, Urine pH 5.5, Ur Specific [place] >= 1.030, Urine Protein Negative, Urine Glucose (UA) Negative, Urine Ketones 40 H, Urine Blood Small H, Urine Nitrate Positive H, Urine Bilirubin Negative, Urine Urobilinogen 0.2, Ur Leukocyte Esterase Trace H , Urine RBC 2 - 5, Urine WBC 5 - 10, Ur Epithelial Cells 3 - 4, Urine Bacteria Many, Urine Other Mucus, Urine HCG, Qual Negative 06/03/17 19:09: Sodium 141, Potassium 4.0, Chloride 104, Carbon Dioxide 27, Anion Gap 14, BUN 15, Creatinine 0.6 L, Est GFR ( Amer) > 60, Est GFR ( Non-Af Amer) > 60, Random Glucose 105, Calcium 10.0, Total Bilirubin 0.5, AST 32 , ALT 26, Alkaline Phosphatase 72, Total Protein 7.5, Albumin 4.2, Globulin 3.2 , Albumin/Globulin Ratio 1.3, Lipase 93 06/03/17 19:09: PT 11.8, INR 1.03, APTT 27.2 06/03/17 19:09: WBC 10.5 D, RBC 4.35, Hgb 12.9, Hct 39.0, MCV 89.7, MCH 29.7, MCHC 33.1, RDW 12.9, Plt Count 253, MPV 10.7, Gran % 90.6 H, Lymph % (Auto) 6.7 L, [place] % (Auto) 2.3, Eos % (Auto) 0.1 L, Baso % (Auto) 0.3, Gran # 9.54 H, Lymph # (Auto) 0.7 L, [place] # (Auto) 0.2, Eos # (Auto) 0.0, Baso # (Auto) 0.03, Neutrophils % (Manual) 85 H, Band Neutrophils % 2, Lymphocytes % (Manual) 11 L, Monocytes % (Manual) 0 L, Basophils % (Manual) 2 H, Platelet Evaluation Normal - RAD Interpretation Narrative RAD Interpretations (Text): 06/03/17 18:48 Chest xray is negative, as read by me. Radiology Orders: 06/03/17 18:18 CHEST PORTABLE [RAD] Stat 06/03/17 19:50 ABD & PELVIS IV CONTRAST ONLY [CT] Stat - Medication Orders Current Medication Orders: Acetaminophen (Tylenol 325mg Tab) 650 mg PO Q4 PRN PRN Reason: Headache Last Admin: 06/03/17 23:28 Dose: 650 mg MAR Pain/Vitals Document 06/03/17 23:28 AB (Rec: 06/03/17 23:29 AB [id number]) Pain Reassessment Is This A Pain ReAssessment? Yes Sleep Is patient sleeping during reassessment? 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 Description Constant Intensity 5 Scale Used Numeric Pain Behavior Moaning Aggravating Factors None Alleviating Factors Medication Docusate Sodium (Colace) 100 mg PO BID PRN PRN Reason: Constipation Enoxaparin Sodium (Lovenox) 40 mg SC DAILY [facility] PRN Reason: Protocol Last Admin: 06/04/17 09:44 Dose: 40 mg Subcutaneous Administrations Document 06/04/17 09:44 MCV (Rec: 06/04/17 09:45 MCV [id number]) Injection Site MAR Injection Site Left Abdomen Charges for Administration # of Subcutaneous Administrations 1 Lactated Ringer's (Lactated Ringer's) 1,000 mls @ 100 mls/hr IV .Q10H [facility] Last Admin: 06/04/17 09:47 Dose: 100 mls/hr eMAR Start Stop Document 06/04/17 09:47 MCV (Rec: 06/04/17 09:48 MCV [id number]) Intravenous Solution Start Date 06/04/17 Start Time 09:48 Ceftriaxone Sodium (Rocephin 2 Gm Ivpb) 2 gm in 100 mls @ 100 mls/hr IVPB DAILY [facility] PRN Reason: Protocol Ibuprofen (Motrin Tab) 600 mg PO Q6H PRN PRN Reason: Pain, Mild (1-3) Last Admin: 06/04/17 09:45 Dose: 600 mg MAR Pain/Vitals Document 06/04/17 09:45 MCV (Rec: 06/04/17 09:45 MCV [id number]) Presence of Pain Presence of Pain Yes Pain Scale Used Pain Scale Used Numeric Location Pain Location Body Site Abdomen Description Constant Intensity 3 Scale Used Numeric Pain Behavior Facial Grimacing Aggravating Factors None Alleviating Factors Medication Metronidazole (Flagyl) 500 mg PO BID [facility] PRN Reason: Protocol Last Admin: 06/04/17 09:45 Dose: 500 mg Ondansetron HCl (Zofran Inj) 4 mg IVP Q4 PRN PRN Reason: Nausea/Vomiting Pantoprazole Sodium (Protonix Ec Tab) 40 mg PO 0600 [facility] Last Admin: 06/04/17 05:46 Dose: 40 mg Phenazopyridine HCl (Pyridium) 200 mg PO TID PRN PRN Reason: Urinary discomt Discontinued Medications Sodium Chloride (Sodium Chloride 0.9%) 1,000 mls @ 1,000 mls/hr IV .Q1H STA Stop: 06/03/17 19:17 Last Admin: 06/03/17 19:00 Dose: 1,000 mls/hr eMAR Start Stop Document 06/03/17 19:00 OCS (Rec: 06/03/17 19:00 OCS [id number]) Intravenous Solution Start Date 06/03/17 Start Time 19:00 End Date 06/03/17 End time 20:00 Total Infusion Time 60 Ceftriaxone Sodium (Rocephin 2 Gm Ivpb) 2 gm in 100 mls @ 100 mls/hr IVPB STAT [facility] PRN Reason: Protocol Stop: 06/03/17 21:15 Last Admin: 06/03/17 20:27 Dose: 100 mls/hr eMAR Start Stop Document 06/03/17 20:27 AB (Rec: 06/03/17 20:27 AB [id number]) Intravenous Solution Start Date 06/03/17 Start Time 20:27 End Date 06/03/17 End time 21:27 Total Infusion Time 60 Metronidazole (Flagyl) 500 mg in 100 mls @ 100 mls/hr IVPB STAT [facility] PRN Reason: Protocol Stop: 06/03/17 23:41 Last Admin: 06/03/17 23:04 Dose: 100 mls/hr eMAR Start Stop Document 06/03/17 23:04 AB (Rec: 06/03/17 23:04 AB [id number]) Intravenous Solution Start Date 06/03/17 Start Time 23:04 End Date 06/04/17 End time 00:04 Total Infusion Time 60 Ketorolac Tromethamine (Toradol) 30 mg IVP STAT STA Stop: 06/03/17 18:19 Last Admin: 06/03/17 19:00 Dose: 30 mg MAR Pain Assessment Document 06/03/17 19:00 OCS (Rec: 06/03/17 19:01 OCS [id number]) Pain Reassessment Is this a pain reassessment? Yes Sleep Is patient sleeping during reassessment? No Presence of Pain Presence of Pain Yes Location Pain Location Body Site Generalized Description Aggravating Factors ADL's IVP Administration Document 06/03/17 19:00 OCS (Rec: 06/03/17 19:01 OCS [id number]) Charges for Administration # of IVP Administrations 1 Re-Assess: MAR Pain Assessment Document 06/03/17 20:00 AB (Rec: 06/03/17 21:20 AB [id number]) Pain Reassessment Is this a pain reassessment? Yes Sleep Is patient sleeping during reassessment? No Presence of Pain Presence of Pain No Ondansetron HCl (Zofran Inj) 4 mg IVP STAT STA Stop: 06/03/17 18:19 Last Admin: 06/03/17 19:01 Dose: 4 mg IVP Administration Document 06/03/17 19:01 OCS (Rec: 06/03/17 19:01 OCS [id number]) Charges for Administration # of IVP Administrations 1 - Scribe Statement The provider has reviewed the documentation as recorded by the Edilberto Elkins Provider Scribe Attestation: All medical record entries made by the Scribe were at my direction and personally dictated by me. I have reviewed the chart and agree that the record accurately reflects my personal performance of the history, physical exam, medical decision making, and the department course for this patient. I have also personally directed, reviewed, and agree with the discharge instructions and disposition. Disposition/Present on Arrival - Present on Arrival Any Indicators Present on Arrival: No History of DVT/PE: No History of Uncontrolled Diabetes: No Urinary Catheter: No History of Decub. Ulcer: No History Surgical Site Infection Following: None - Disposition Have Diagnosis and Disposition been Completed?: Yes Diagnosis: Abdominal pain, UTI (urinary tract infection) Disposition: HOSPITALIZED Disposition Time: 11:00 Condition: STABLE
[2017-06-03 19:40] LABS: ALB/GLOB RATIO 1.3 (1.1-1.8); ALBUMIN 4.2 g/dL (3.0-4.8); ALT/SGPT 26 U/L (7-56); AST/SGOT 32 U/L (14-36); BLOOD UREA NITROGEN 15 mg/dL (7-21); GFR AFRICAN-AMERICAN > 60; GFR NON-AFRICAN AMERICAN > 60; LIPASE 93 U/L (23-300)
[2017-06-03 19:54] LABS: BASO # 0.03 K/mm3 (0.0-2.0); BASO % 0.3 % (0.0-3.0); EOS % 0.1 % (1.5-5.0); GRAN # 9.54 (1.4-6.5); GRAN % 90.6 % (50.0-68.0); HEMOGLOBIN 12.9 g/dL (12.0-16.0); LYMPH # 0.7 (1.2-3.4); LYMPH % 6.7 % (22.0-35.0); MEAN CELL VOLUME 89.7 fl (80.0-105.0); MEAN CORPUSCULAR HEMOGLOBIN 29.7 pg (25.0-35.0); MEAN CORPUSCULAR HGB CONC 33.1 g/dl (31.0-37.0); MEAN PLATELET VOLUME 10.7 fl (7.0-11.0); MONO # 0.2 (0.1-0.6); MONO % 2.3 % (1.0-6.0); PLATELET COUNT 253 10^3/uL (120.0-450.0); RBC 4.35 10^6/uL (3.5-6.1); RED CELL DISTRIBUTION WIDTH 12.9 % (11.5-14.5); WHITE BLOOD COUNT 10.5 10^3/ul (4.5-11.0)
[2017-06-03 19:56] LABS: INR 1.03 (0.93-1.08); PARTIAL THROMBOPLASTIN TIME 27.2 Seconds (25.1-36.5); PROTHROMBIN TIME 11.8 SECONDS (9.4-12.5)
[2017-06-03 20:11] LABS: PH,URINE 5.5 (4.7-8.0); URINE BILIRUBIN NEGATIVE (NEGATIVE); URINE BLOOD SMALL (NEGATIVE); URINE GLUCOSE (UA) NEGATIVE (NEGATIVE); URINE LEUKOCYTE ESTERASE TRACE Leu/uL (NEGATIVE); URINE NITRATE POSITIVE (NEGATIVE); URINE PROTEIN NEGATIVE mg/dL (<30 mg/dL); URINE UROBILINOGEN 0.2 E.U./dL (<1 E.U./dL)
[2017-06-03 20:13] LABS: URINE APPEARANCE SL CLOUDY (CLEAR); URINE COLOR YELLOW (YELLOW)
[2017-06-03] MEDS ORDERED: cefTRIAXone 2 GM IN NS 2 GM/100 ML BAG IVPB STA (20:16)
[2017-06-03 20:31] LABS: HCG,QUALITATIVE URINE NEGATIVE (NEGATIVE)
[2017-06-03 20:50] LABS: URINE BACTERIA MANY (NEG)
[2017-06-03] MEDS ORDERED: Iohexol 350 MG/100 ML VIAL ONE (21:10)
[2017-06-03 21:27] LABS: BAND 2 % (0-2); BASOPHIL 2 % (0.0-1.0); LYMPHOCYTE 11 % (22.0-35.0); MONOCYTE 0 % (1.0-6.0); NEUTROPHIL 85 % (50.0-70.0); PLATELET ESTIMATE NORMAL (NORMAL)
--- NOTE | 2017-06-03 22:34 | CT ---
EXAM: CT Abdomen and Pelvis With Intravenous Contrast EXAM DATE/TIME: 06/03/2017 7:50 PM CLINICAL HISTORY: 56 years old, female; Pain; Abdominal pain; Acute; Additional info: Llq pain TECHNIQUE: Axial computed tomography images of the abdomen and pelvis with intravenous contrast. All CT scans at this facility use one or more dose reduction techniques, viz.: automated exposure control; ma/kV adjustment per patient size (including targeted exams where dose is matched to indication; i.e. head); or iterative reconstruction technique. Coronal and sagittal reformatted images were created and reviewed. CONTRAST: 100 mL of OMNI 350 administered intravenously. COMPARISON: Prior CT abdomen and pelvis of 2017-02-07 FINDINGS: LIMITATIONS: Moderate streak/motion artifact. LOWER THORAX: No infiltrate seen in the lung bases. ABDOMEN: LIVER: No acute abnormality of the liver identified. GALLBLADDER AND BILE DUCTS: Common bile duct is mildly dilated, measuring 8 mm. No radiopaque common bile duct stones are seen. No radioopaque gallstones are seen. No CT evidence of acute cholecystitis. PANCREAS: No CT evidence of acute pancreatitis. SPLEEN: No acute abnormality of the spleen identified. ADRENALS: No acute abnormality of the adrenal glands identified. KIDNEYS AND URETERS: No acute abnormality of the kidneys identified. No evidence of significant hydrouereteronephrosis. STOMACH AND BOWEL: Colon is mostly decompressed, which limits evaluation for wall thickening. Otherwise, no significant abnormality of the bowel is identified. No evidence of bowel obstruction or. APPENDIX: Appendix is seen, and the right anterior pelvis, extending inferiorly from the cecum. It is fluid-filled. There is an appendicolith in the appendiceal lumen. It measures 7 mm in diameter, which is minimally dilated. No adjacent inflammation. Size of the appendix is similar to the prior exam. Findings are most likely within normal limits. Bony structures appear demineralized. PELVIS: BLADDER: No acute abnormality of the bladder identified. REPRODUCTIVE:No acute abnormality of the reproductive organs is seen. No acute abnormality of the uterus identified. No evidence of large adnexal masses. ABDOMEN and PELVIS: INTRAPERITONEAL SPACE: No evidence of free intraperitoneal air or fluid. BONES/JOINTS: No acute fractures or other acute bony abnormality noted. SOFT TISSUES: No acute abnormality of the visualized soft tissues is seen. VASCULATURE: No evidence of abdominal aortic aneurysm. No evidence of periaortic hemorrhage. LYMPH NODES: No evidence of diffuse lymphadenopathy. IMPRESSION: - Appendix is fluid-filled and minimally dilated, 7 mm. No adjacent inflammation. Most likely, the findings are within normal limits. If there is clinical concern for early appendicitis, consider a short term followup CT, to reassess the appendix. - Mild dilatation of the common bile duct, cause not identified. Recommend correlation with LFTs for laboratory evidence of biliary obstruction. - Otherwise, no evidence of significant acute process. - See above for remaining findings.
[2017-06-03] MEDS ORDERED: metroNIDAZOLE IV 500 mg/100 ml 500 MG/100 ML BAG IVPB STA (22:42)
--- NOTE | 2017-06-03 22:59 | CP.PCM.CON ---
History of Present Illness - History of Present Illness History of Present Illness: Surgery Consult: Dr. Holley CC: pain with urination, n/v HPI: Patient is a 56 y/o female who presents complaining of pain in her abdomen for the past 4-5 days. Describes the pain at pressure and cramp like located supra-pubic and LLQ mainly with some extension into RLQ. She states the pain has been associated with foul smelling urine, headache, and bloating. She states yesterday she started having nausea and vomiting, nonbilious nonbloody emesis. Was unable to tolerate food. She reports similar symptoms in the past about 1 year ago when she was diagnosed with a bladder infection. She denies blood in urine. She states she has normal BMs but complains of hemorrhoids. She reports mucous in stools but no blood and denies prior colonoscopy. She denies fever but complains of chills. Denies chest pain or SOB. PMH: UTI PSH: Social: denies ETOH, tobacco or drug abuse Fam hx: noncontributory Meds: denies Review of Systems - Constitutional Constitutional: Anorexia, Chills. absent: Fever, Weight Loss - EENT Eyes: absent: Blurred Vision, Change in Vision Nose/Mouth/Throat: Nasal Congestion. absent: Nasal Trauma - Cardiovascular Cardiovascular: absent: Chest Pain, Dyspnea - Respiratory Respiratory: absent: Cough, Wheezing - Gastrointestinal Gastrointestinal: Abdominal Pain, Bloating, Cramping, Nausea, Vomiting. absent : Diarrhea - Genitourinary Genitourinary: Dysuria, Urinary Frequency. absent: Hematuria - Musculoskeletal Musculoskeletal: absent: Back Pain, Stiffness - Integumentary Integumentary: absent: Rash, Wounds - Neurological Neurological: absent: Dizziness, Numbness - Psychiatric Psychiatric: absent: Confusion, Depression - Endocrine Endocrine: absent: Polydipsia, Polyphagia - Hematologic/Lymphatic Hematologic: absent: Easy Bleeding, Easy Bruising Past Patient History - Infectious Disease Hx of Infectious Diseases: None - Tetanus Immunizations Tetanus Immunization: Unknown - Past Medical History & Family History Past Medical History?: Yes Past Family History: Reviewed and not pertinent - Past Social History Smoking Status: Never Smoked Alcohol: None Drugs: Denies Home Situation {Lives}: With Family - CARDIAC Hx Cardiac Disorders: No - PULMONARY Hx Respiratory Disorders: No - NEUROLOGICAL Hx Neurological Disorder: No Other/Comment: hx of sinus disease - HEENT Hx HEENT Problems: No - RENAL Hx Chronic Kidney Disease: No - ENDOCRINE/METABOLIC Hx Endocrine Disorders: No - HEMATOLOGICAL/ONCOLOGICAL Hx Blood Disorders: No - INTEGUMENTARY Hx Dermatological Problems: No - MUSCULOSKELETAL/RHEUMATOLOGICAL Hx Musculoskeletal Disorders: No - GASTROINTESTINAL Hx Gastrointestinal Disorders: No Hx Hemorrhoids: Yes - GENITOURINARY/GYNECOLOGICAL Hx Genitourinary Disorders: Yes Hx Urinary Tract Infection: Yes - PSYCHIATRIC Hx Psychophysiologic Disorder: No Hx Depression: No Hx Emotional Abuse: No Hx Physical Abuse: No Hx Substance Use: No - SURGICAL HISTORY Hx Section: Yes (x3) - ANESTHESIA Hx Anesthesia: Yes Hx Anesthesia Reactions: No Hx Malignant Hyperthermia: No Meds Allergies/Adverse Reactions: Allergies Allergy/AdvReac Type Severity Reaction Status Date / Time No Known Allergies Allergy Verified 05/26/17 13:42 - Medications Medications: Current Medications Metronidazole (Flagyl) 500 mg in 100 mls @ 100 mls/hr IVPB STAT STA PRN Reason: Protocol Stop: 06/03/17 23:41 Physical Exam - Constitutional Appears: Non-toxic, No Acute Distress - Head Exam Head Exam: ATRAUMATIC, NORMOCEPHALIC - Eye Exam Eye Exam: EOMI, Normal appearance - ENT Exam ENT Exam: Mucous Membranes Moist - Respiratory Exam Respiratory Exam: NORMAL BREATHING PATTERN. absent: Respiratory Distress - Cardiovascular Exam Cardiovascular Exam: REGULAR RHYTHM. absent: Tachycardia - GI/Abdominal Exam GI & Abdominal Exam: Soft, Tenderness (suprapubic and LLQ mild to deep palpation ). absent: Distended, Guarding, Hernia, Rebound, Rigid (negative McBurney's ) - Extremities Exam Extremities exam: Positive for: normal inspection. Negative for: calf tenderness - Back Exam Back exam: absent: CVA tenderness (L), CVA tenderness (R) - Neurological Exam Neurological exam: Alert, Oriented x3 - Psychiatric Exam Psychiatric exam: Normal Affect, Normal Mood - Skin Skin Exam: Dry, Normal Color, Warm Results - Vital Signs Recent Vital Signs: Last Vital Signs Temp 97.8 F 06/03/17 20:00 Pulse 78 06/03/17 20:00 Resp 16 06/03/17 20:00 BP 105/60 06/03/17 20:00 Pulse Ox 99 06/03/17 20:00 - Labs Result Diagrams: 06/03/17 19:09 06/03/17 19:09 Labs: Laboratory Results - last 24 hr 06/03/17 06/03/17 06/03/17 19:09 19:09 19:09 WBC 10.5 D RBC 4.35 Hgb 12.9 Hct 39.0 MCV 89.7 MCH 29.7 MCHC 33.1 RDW 12.9 Plt Count 253 MPV 10.7 Gran % 90.6 H Lymph % (Auto) 6.7 L [place] % (Auto) 2.3 Eos % (Auto) 0.1 L Baso % (Auto) 0.3 Gran # 9.54 H Lymph # (Auto) 0.7 L [place] # (Auto) 0.2 Eos # (Auto) 0.0 Baso # (Auto) 0.03 Neutrophils % (Manual) 85 H Band Neutrophils % 2 Lymphocytes % (Manual) 11 L Monocytes % (Manual) 0 L Basophils % (Manual) 2 H Platelet Evaluation Normal PT 11.8 INR 1.03 APTT 27.2 Sodium 141 Potassium 4.0 Chloride 104 Carbon Dioxide 27 Anion Gap 14 BUN 15 Creatinine 0.6 L Est GFR ( Amer) > 60 Est GFR (Non-Af Amer) > 60 Random Glucose 105 Calcium 10.0 Total Bilirubin 0.5 AST 32 ALT 26 Alkaline Phosphatase 72 Total Protein 7.5 Albumin 4.2 Globulin 3.2 Albumin/Globulin Ratio 1.3 Lipase 93 Urine Color Urine Appearance Urine pH Ur Specific [place] Urine Protein Urine Glucose (UA) Urine Ketones Urine Blood Urine Nitrate Urine Bilirubin Urine Urobilinogen Ur Leukocyte Esterase Urine RBC Urine WBC Ur Epithelial Cells Urine Bacteria Urine Other Urine HCG, Qual 06/03/17 19:55 WBC RBC Hgb Hct MCV MCH MCHC RDW Plt Count MPV Gran % Lymph % (Auto) [place] % (Auto) Eos % (Auto) Baso % (Auto) Gran # Lymph # (Auto) [place] # (Auto) Eos # (Auto) Baso # (Auto) Neutrophils % (Manual) Band Neutrophils % Lymphocytes % (Manual) Monocytes % (Manual) Basophils % (Manual) Platelet Evaluation PT INR APTT Sodium Potassium Chloride Carbon Dioxide Anion Gap BUN Creatinine Est GFR ( Amer) Est GFR (Non-Af Amer) Random Glucose Calcium Total Bilirubin AST ALT Alkaline Phosphatase Total Protein Albumin Globulin Albumin/Globulin Ratio Lipase Urine Color Yellow Urine Appearance Sl cloudy Urine pH 5.5 Ur Specific [place] >= 1.030 Urine Protein Negative Urine Glucose (UA) Negative Urine Ketones 40 H Urine Blood Small H Urine Nitrate Positive H Urine Bilirubin Negative Urine Urobilinogen 0.2 Ur Leukocyte Esterase Trace H Urine RBC 2 - 5 Urine WBC 5 - 10 Ur Epithelial Cells 3 - 4 Urine Bacteria Many Urine Other Mucus Urine HCG, Qual Negative - Imaging and Cardiology CT scan - abdomen Status: Image reviewed by me, Report reviewed by me Additional comment: appendix easily identified and uniform 6mm dilation throughout, no evidence of karla-appendiceal inflammation, air noted in proximal lumen. similar to prior studies Assessment & Plan - Assessment and Plan (Free Text) Assessment: 56 y/o female w/ abdominal pain most likely 2/2 UTI Plan: -clinical history and exam not concerning for appendicitis and CT appendix finding similar to prior exams -recommend abx for UTI -serial abdominal exams -IVFs -ok for diet -OOB -DVt ppx -no acute surgical intervention at this time -will cont to monitor -further recs pending clinical course -further recs per Dr. Kishan Waddell PGY3 - Date & Time Date: 06/03/17 Time: 23:10
[2017-06-03] MEDS: Lactated Ringer's 1,000 ML IV SCH (23:28)
[2017-06-03 23:48] VITALS: O2SAT 98
--- NOTE | 2017-06-04 02:00 | CP.PCM.HP ---
<Byron Morales - Last Filed: 06/04/17 02:31> History of Present Illness - History of Present Illness History of Present Illness: CC: Abdominal pain HPI: Patient is a 56 year old female with past medical history of bladder infection who presented to ED complaining of 4 day history of left lower quadrant abdominal pain. Patient indicates she has had nausea and vomiting for the past 24 hours. Patient reports emesis as yellow with chunks of food, absent of blood. Patient reports pain as dull and achey in nature with some movement towards her pelvic region. She denies any constipation or diarrhea. Patient reports normal bowel movements, sekou hematochezia. Patient reports associated symptoms of headache, diarrhea and dysuria. Patient indicates her urine is darker in color and with a foul smelling odor, absent of blood. Patient reports that she has visited the ED in the past few weeks for similar nausea and vomiting symptoms for which she was diagnosed with flu like syndrome and sent home. Patient reports taking in appropriate amounts of fluid while at home. Patient denies fever, chills, chest pain, shortness of breth, hematuria, dizziness. 12 point of review of symptoms is benign otherwise mentioned in HPI PMH: Previous cystitis, Frontal sinus headache PSH: x3 SocHx: Tobacco: Denies, ETOH: Denies, ID: Denies All: NKDA Medications: Denies Present on Admission - Present on Admission Any Indicators Present on Admission: No Review of Systems - Constitutional Constitutional: absent: Anorexia, Chills, Night Sweats, Weight Loss - EENT Eyes: absent: Blurred Vision, Change in Vision, Diplopia, Irritation, Itchy Eyes Ears: absent: Ear Discharge, Ear Pain Nose/Mouth/Throat: absent: Epistaxis, Nasal Congestion - Cardiovascular Cardiovascular: absent: Chest Pain, Dyspnea, Palpitations - Respiratory Respiratory: absent: Cough, Dyspnea, Hemoptysis - Gastrointestinal Gastrointestinal: Abdominal Pain (LLQ), Bloating. absent: Fecal Incontinence, Hematochezia - Genitourinary Genitourinary: Dysuria. absent: Flank Pain, Hematuria - Musculoskeletal Musculoskeletal: As Per HPI - Integumentary Integumentary: As Per HPI - Neurological Neurological: absent: Abnormal Gait, Abnormal Movements, Confusion, Dizziness, Numbness, Focal Weakness, Syncope, Tremor - Psychiatric Psychiatric: absent: Anxiety, Depression - Hematologic/Lymphatic Hematologic: absent: Easy Bleeding, Easy Bruising Past Patient History - Infectious Disease Hx of Infectious Diseases: None - Tetanus Immunizations Tetanus Immunization: Unknown - Past Medical History & Family History Past Medical History?: Yes Past Family History: Reviewed and not pertinent - Past Social History Smoking Status: Never Smoked Alcohol: None Drugs: Denies Home Situation {Lives}: With Family - CARDIAC Hx Cardiac Disorders: No - PULMONARY Hx Respiratory Disorders: No - NEUROLOGICAL Hx Neurological Disorder: No Other/Comment: hx of sinus disease - HEENT Hx HEENT Problems: No - RENAL Hx Chronic Kidney Disease: No - ENDOCRINE/METABOLIC Hx Endocrine Disorders: No - HEMATOLOGICAL/ONCOLOGICAL Hx Blood Disorders: No - INTEGUMENTARY Hx Dermatological Problems: No - MUSCULOSKELETAL/RHEUMATOLOGICAL Hx Musculoskeletal Disorders: No - GASTROINTESTINAL Hx Gastrointestinal Disorders: No Hx Hemorrhoids: Yes - GENITOURINARY/GYNECOLOGICAL Hx Genitourinary Disorders: Yes Hx Urinary Tract Infection: Yes - PSYCHIATRIC Hx Psychophysiologic Disorder: No Hx Depression: No Hx Emotional Abuse: No Hx Physical Abuse: No Hx Substance Use: No - SURGICAL HISTORY Hx Section: Yes (x3) - ANESTHESIA Hx Anesthesia: Yes Hx Anesthesia Reactions: No Hx Malignant Hyperthermia: No Meds Allergies/Adverse Reactions: Allergies Allergy/AdvReac Type Severity Reaction Status Date / Time No Known Allergies Allergy Verified 05/26/17 13:42 Physical Exam - Constitutional Appears: Non-toxic Additional comments: appears stated age, laying in bed with hands on abdomen, - Head Exam Head Exam: ATRAUMATIC, NORMAL INSPECTION, NORMOCEPHALIC - Eye Exam Eye Exam: EOMI, PERRL - ENT Exam ENT Exam: Mucous Membranes Dry - Respiratory Exam Respiratory Exam: Clear to Auscultation Bilateral, NORMAL BREATHING PATTERN. absent: Rales, Rhonchi, Wheezes - Cardiovascular Exam Cardiovascular Exam: REGULAR RHYTHM, +S1, +S2. absent: Gallop, JVD, Rubs, Systolic Murmur - GI/Abdominal Exam GI & Abdominal Exam: Normal Bowel Sounds, Soft - Extremities Exam Extremities exam: Positive for: normal inspection, pedal pulses present. Negative for: calf tenderness, pedal edema - Back Exam Back exam: absent: CVA tenderness (L), CVA tenderness (R) - Neurological Exam Neurological exam: Alert, Oriented x3 Additional comments: patient able to follow simple commands, move all four extremities past midline, motor and sensory grossly intact - Psychiatric Exam Psychiatric exam: Normal Affect, Normal Mood - Skin Skin Exam: Dry, Normal Color, Warm Results - Vital Signs Recent Vital Signs: Last Vital Signs Temp 98.0 F 06/03/17 23:47 Pulse 67 06/03/17 23:47 Resp 16 06/03/17 23:47 BP 100/66 06/03/17 23:47 Pulse Ox 98 06/03/17 23:47 - Labs Result Diagrams: 06/03/17 19:09 06/03/17 19:09 Labs: Laboratory Results - last 24 hr 06/03/17 06/03/17 06/03/17 19:09 19:09 19:09 WBC 10.5 D RBC 4.35 Hgb 12.9 Hct 39.0 MCV 89.7 MCH 29.7 MCHC 33.1 RDW 12.9 Plt Count 253 MPV 10.7 Gran % 90.6 H Lymph % (Auto) 6.7 L [place] % (Auto) 2.3 Eos % (Auto) 0.1 L Baso % (Auto) 0.3 Gran # 9.54 H Lymph # (Auto) 0.7 L [place] # (Auto) 0.2 Eos # (Auto) 0.0 Baso # (Auto) 0.03 Neutrophils % (Manual) 85 H Band Neutrophils % 2 Lymphocytes % (Manual) 11 L Monocytes % (Manual) 0 L Basophils % (Manual) 2 H Platelet Evaluation Normal PT 11.8 INR 1.03 APTT 27.2 Sodium 141 Potassium 4.0 Chloride 104 Carbon Dioxide 27 Anion Gap 14 BUN 15 Creatinine 0.6 L Est GFR ( Amer) > 60 Est GFR (Non-Af Amer) > 60 Random Glucose 105 Calcium 10.0 Total Bilirubin 0.5 AST 32 ALT 26 Alkaline Phosphatase 72 Total Protein 7.5 Albumin 4.2 Globulin 3.2 Albumin/Globulin Ratio 1.3 Lipase 93 Urine Color Urine Appearance Urine pH Ur Specific [place] Urine Protein Urine Glucose (UA) Urine Ketones Urine Blood Urine Nitrate Urine Bilirubin Urine Urobilinogen Ur Leukocyte Esterase Urine RBC Urine WBC Ur Epithelial Cells Urine Bacteria Urine Other Urine HCG, Qual 06/03/17 19:55 WBC RBC Hgb Hct MCV MCH MCHC RDW Plt Count MPV Gran % Lymph % (Auto) [place] % (Auto) Eos % (Auto) Baso % (Auto) Gran # Lymph # (Auto) [place] # (Auto) Eos # (Auto) Baso # (Auto) Neutrophils % (Manual) Band Neutrophils % Lymphocytes % (Manual) Monocytes % (Manual) Basophils % (Manual) Platelet Evaluation PT INR APTT Sodium Potassium Chloride Carbon Dioxide Anion Gap BUN Creatinine Est GFR ( Amer) Est GFR (Non-Af Amer) Random Glucose Calcium Total Bilirubin AST ALT Alkaline Phosphatase Total Protein Albumin Globulin Albumin/Globulin Ratio Lipase Urine Color Yellow Urine Appearance Sl cloudy Urine pH 5.5 Ur Specific [place] >= 1.030 Urine Protein Negative Urine Glucose (UA) Negative Urine Ketones 40 H Urine Blood Small H Urine Nitrate Positive H Urine Bilirubin Negative Urine Urobilinogen 0.2 Ur Leukocyte Esterase Trace H Urine RBC 2 - 5 Urine WBC 5 - 10 Ur Epithelial Cells 3 - 4 Urine Bacteria Many Urine Other Mucus Urine HCG, Qual Negative Assessment & Plan - Assessment and Plan (Free Text) Assessment: 56 year old female with past medical history of previous UTI and sinus problems who presented to ED with LLQ abdominal pain, nausea and vomiting. Patient was evaluated and found to have UTI and suspected appendicitis. Patient is admitted for observation and further medical management and evaluation. Plan: 1. UTI - UA showing postiive nitrate and leuk est - Afebrile, Dysuria, foul smelling odor to urine - Continue ceftriaxone - Pyridium - IVF with LR - monitor UOP 2. LLQ abdominal discomfort - likely secondary to UTI - Abd CT scan showing mimially dilated appendix and CBD - General surgery consulted for potential appendicitis, recs for no surgical intervention at this time - Pain control with Tylenol and Motrin 3. Headache - Patient with history of sinus headaches - Tylenol and Motrin for pain - Continue to monitor DVT ppx: Lovenox GI ppx: Protonix 40mg PO Daily Case and plan discussed with attending - Date & Time Date: 06/03/17 Time: 11:10 <Kirby Banegas - Last Filed: 06/04/17 03:14> Results - Vital Signs Recent Vital Signs: Last Vital Signs Temp 98.0 F 06/03/17 23:47 Pulse 67 06/03/17 23:47 Resp 16 06/03/17 23:47 BP 100/66 06/03/17 23:47 Pulse Ox 98 06/03/17 23:47 - Labs Result Diagrams: 06/03/17 19:06/03/17 19:09 Attending/Attestation - Attestation I have personally seen and examined this patient.: Yes I have fully participated in the care of the patient.: Yes I have reviewed all pertinent clinical information: Yes Notes (Text): 06/04/17 03:12 Patient was seen when she was in the bed # 5 in the ER. Agree with history, physical examination, assessment and plan. My impressions are: Flu like symptoms. Fever with chills. LLQ pain. Dehydration. Nausea. Vomiting. UTI. Headache. Granulocytosis. History of sinusitis. Historoy of C-Sections x 3. Family history of hypertension-Father. Family history of MD-Mother.
[2017-06-04] MEDS ORDERED: Pantoprazole 40 mg EC Tab PO SCH (06:00)
[2017-06-04 07:18] LABS: BASO # 0.02 K/mm3 (0.0-2.0); BASO % 0.3 % (0.0-3.0); EOS # 0.1 (0.0-0.7); EOS % 1.7 % (1.5-5.0); GRAN # 3.24 (1.4-6.5); GRAN % 56.7 % (50.0-68.0); HEMOGLOBIN 11.7 g/dL (12.0-16.0); LYMPH % 34.3 % (22.0-35.0); MEAN CELL VOLUME 90.1 fl (80.0-105.0); MEAN CORPUSCULAR HEMOGLOBIN 29.6 pg (25.0-35.0); MEAN CORPUSCULAR HGB CONC 32.9 g/dl (31.0-37.0); MEAN PLATELET VOLUME 10.4 fl (7.0-11.0); MONO # 0.4 (0.1-0.6); RBC 3.95 10^6/uL (3.5-6.1); RED CELL DISTRIBUTION WIDTH 12.9 % (11.5-14.5); WHITE BLOOD COUNT 5.7 10^3/ul (4.5-11.0)
[2017-06-04 07:34] LABS: BLOOD UREA NITROGEN 14 mg/dL (7-21); CALCIUM 9.1 mg/dL (8.4-10.5); GFR AFRICAN-AMERICAN > 60; GFR NON-AFRICAN AMERICAN > 60
[2017-06-04 07:56] VITALS: BP 95/62; PULSE 63; RESP 20; TEMP 98.5
--- NOTE | 2017-06-04 08:45 | RAD ---
HISTORY: abd pain COMPARISON: Comparison is made with 05/26/2017 FINDINGS: LUNGS: No evidence of new infiltrate or consolidation in the lungs. PLEURA: No significant pleural effusion identified, no pneumothorax apparent. CARDIOVASCULAR: Normal. OSSEOUS STRUCTURES: No significant abnormalities. VISUALIZED UPPER ABDOMEN: Normal. OTHER FINDINGS: None. IMPRESSION: No active disease.
--- NOTE | 2017-06-04 09:29 | CP.PCM.PN ---
Subjective - Date & Time of Evaluation Date of Evaluation: 06/04/17 Time of Evaluation: 07:30 - Subjective Subjective: Patient seen and examined at bedside this AM. No adverse events overngiht. Patient states that abdominal pain and bloating are improved this AM. no nausea , vomiting, diarrhea, or constipation. Patient admits to history of pain radiating to her left flank and green discharge from her vagina but denies any fevers Objective - Vital Signs/Intake and Output Vital Signs (last 24 hours): Temp Pulse Resp BP Pulse Ox 98.5 F 63 20 95/62 L 98 06/04/17 07:52 06/04/17 07:52 06/04/17 07:52 06/04/17 07:52 06/04/17 07:52 Intake and Output: 06/04/17 06/04/17 06:59 18:59 Intake Total 720 Output Total 600 Balance 120 - Medications Medications: Current Medications Acetaminophen (Tylenol 325mg Tab) 650 mg PO Q4 PRN PRN Reason: Headache Last Admin: 06/03/17 23:28 Dose: 650 mg Docusate Sodium (Colace) 100 mg PO BID PRN PRN Reason: Constipation Enoxaparin Sodium (Lovenox) 40 mg SC DAILY [facility] PRN Reason: Protocol Lactated Ringer's (Lactated Ringer's) 1,000 mls @ 100 mls/hr IV .Q10H [facility] Last Admin: 06/03/17 23:28 Dose: 100 mls/hr Ceftriaxone Sodium (Rocephin 2 Gm Ivpb) 2 gm in 100 mls @ 100 mls/hr IVPB DAILY [facility] PRN Reason: Protocol Ibuprofen (Motrin Tab) 600 mg PO Q6H PRN PRN Reason: Pain, Mild (1-3) Metronidazole (Flagyl) 500 mg PO BID [facility] PRN Reason: Protocol Ondansetron HCl (Zofran Inj) 4 mg IVP Q4 PRN PRN Reason: Nausea/Vomiting Pantoprazole Sodium (Protonix Ec Tab) 40 mg PO 0600 [facility] Last Admin: 06/04/17 05:46 Dose: 40 mg Phenazopyridine HCl (Pyridium) 200 mg PO TID PRN PRN Reason: Urinary discomt - Labs Labs: 06/04/17 07:00 06/04/17 07:00 PT 11.8 SECONDS (9.4-12.5) 06/03/17 19:09 INR 1.03 (0.93-1.08) 06/03/17 19:09 APTT 27.2 Seconds (25.1-36.5) 06/03/17 19:09 - Constitutional Appears: Well, Non-toxic, No Acute Distress - Head Exam Head Exam: ATRAUMATIC, NORMOCEPHALIC - Eye Exam Eye Exam: Normal appearance. absent: Conjunctival injection, Scleral icterus - ENT Exam ENT Exam: Mucous Membranes Moist, Normal Oropharynx - Respiratory Exam Respiratory Exam: NORMAL BREATHING PATTERN. absent: Accessory Muscle Use, Respiratory Distress - Cardiovascular Exam Cardiovascular Exam: RRR - GI/Abdominal Exam GI & Abdominal Exam: Soft, Tenderness (LLQ). absent: Distended, Rebound - Extremities Exam Extremities Exam: absent: Calf Tenderness, Pedal Edema, Tenderness - Back Exam Back Exam: CVA tenderness (L). absent: CVA tenderness (R) - Neurological Exam Neurological Exam: Alert, Awake, Oriented x3 - Psychiatric Exam Psychiatric exam: Normal Affect, Normal Mood - Skin Skin Exam: Dry, Intact, Normal Color, Warm Assessment and Plan - Assessment and Plan (Free Text) Assessment: 56F with LLQ abdominal pain likely 2/2 UTI vs. PID Plan: -recommend a pelvic exam with G/C swab and a gynecology consult -antibiotics for the UTI -PRN pain/nausea medication -Diet as tolerated -No indication for surgical intervention at this time--clinical presentation and physical exam low suspicion for appendicitis Further recommendations per Dr. Kishan Hurst, PGy2
[2017-06-04] MEDS: Lactated Ringer's 1,000 ML IV SCH (09:47)
[2017-06-04] MEDS ORDERED: Enoxaparin 40 mg Syringe SC SCH (10:00)
[2017-06-04] MEDS ORDERED: Barium Sulfate Susp 2.1% w/v, 2.0% w/w 450 mL Bottle PO ONE (10:18)
--- NOTE | 2017-06-04 11:55 | CT ---
PROCEDURE: CT HEAD WITHOUT CONTRAST. HISTORY: worsening headache COMPARISON: None available. TECHNIQUE: Axial computed tomography images were obtained through the head/brain without intravenous contrast. Radiation dose: Total exam DLP = 848.93 mGy-cm. This CT exam was performed using one or more of the following dose reduction techniques: Automated exposure control, adjustment of the mA and/or kV according to patient size, and/or use of iterative reconstruction technique. FINDINGS: HEMORRHAGE: No intracranial hemorrhage. BRAIN: No mass effect or edema. No atrophy or chronic microvascular ischemic changes. VENTRICLES: Unremarkable. No hydrocephalus. CALVARIUM: Unremarkable. PARANASAL SINUSES: Unremarkable as visualized. No significant inflammatory changes. MASTOID AIR CELLS: Unremarkable as visualized. No inflammatory changes. OTHER FINDINGS: None. IMPRESSION: No evidence of acute intracranial hemorrhage intracranial collection mass effect or midline shift.
[2017-06-04] MEDS ORDERED: cefTRIAXone 2 GM IN NS 2 GM/100 ML BAG IVPB SCH (12:00)
--- NOTE | 2017-06-04 12:05 | CT ---
PROCEDURE: CT Abdomen and Pelvis without intravenous contrast HISTORY: lower abd pain r/o kidney stones. Stone protocol COMPARISON: Comparison is made to the previous study dated 06/03/2017 TECHNIQUE: Axial and reformatted coronal and sagittal CT images of the abdomen and pelvis. Contrast Dose: 0 IV contrast Radiation dose: Total exam DLP = 222.95 mGy-cm. This CT exam was performed using one or more of the following dose reduction techniques: Automated exposure control, adjustment of the mA and/or kV according to patient size, and/or use of iterative reconstruction technique. FINDINGS: LOWER THORAX: No evidence of acute pathology at the lung bases. LIVER: Unremarkable. No gross lesion or ductal dilatation. GALLBLADDER AND BILE DUCTS: No evidence of cholecystitis or radiopaque gallstones noted. No evidence of significant extrahepatic biliary ductal dilatation. PANCREAS: Unremarkable. No gross lesion or ductal dilatation. SPLEEN: Unremarkable. ADRENALS: Unremarkable. No mass. KIDNEYS AND URETERS: Unremarkable. No hydronephrosis. No solid mass. VASCULATURE: Unremarkable. No aortic aneurysm. BOWEL: Unremarkable. No obstruction. No gross mural thickening. APPENDIX: No evidence of appendicitis. PERITONEUM: Unremarkable. No free fluid. No free air. LYMPH NODES: Unremarkable. No enlarged lymph nodes. BLADDER: Mild urinary bladder wall thickening. REPRODUCTIVE: Unremarkable. BONES: No acute fracture. OTHER FINDINGS: None. IMPRESSION: No evidence of nephrolithiasis or hydronephrosis. Mild urinary bladder wall thickening. No evidence of cholecystitis pancreatitis or appendicitis.
--- NOTE | 2017-06-05 05:08 | CP.PCM.DIS ---
Provider - Provider Date of Admission: 06/03/17 22:44 Attending physician: Tricia Rico MD Consults: General Surgery: Dr. Holley Time Spent in preparation of Discharge (in minutes): 45 Diagnosis - Discharge Diagnosis (1) UTI (urinary tract infection) Status: Acute Priority: Medium Hospital Course - Lab Results Lab Results: Micro Results 06/04/17 09:00 Vaginal Gram Stain - Final Most Recent Lab Values WBC 5.7 10^3/ul (4.5-11.0) D 06/04/17 07:00 RBC 3.95 10^6/uL (3.5-6.1) 06/04/17 07:00 Hgb 11.7 g/dL (12.0-16.0) L 06/04/17 07:00 Hct 35.6 % (36.0-48.0) L 06/04/17 07:00 MCV 90.1 fl (80.0-105.0) 06/04/17 07:00 MCH 29.6 pg (25.0-35.0) 06/04/17 07:00 MCHC 32.9 g/dl (31.0-37.0) 06/04/17 07:00 RDW 12.9 % (11.5-14.5) 06/04/17 07:00 Plt Count 226 10^3/uL (120.0-450.0) 06/04/17 07:00 MPV 10.4 fl (7.0-11.0) 06/04/17 07:00 Gran % 56.7 % (50.0-68.0) 06/04/17 07:00 Lymph % (Auto) 34.3 % (22.0-35.0) 06/04/17 07:00 [place] % (Auto) 7.0 % (1.0-6.0) H 06/04/17 07:00 Eos % (Auto) 1.7 % (1.5-5.0) 06/04/17 07:00 Baso % (Auto) 0.3 % (0.0-3.0) 06/04/17 07:00 Gran # 3.24 (1.4-6.5) 06/04/17 07:00 Lymph # (Auto) 2.0 (1.2-3.4) 06/04/17 07:00 [place] # (Auto) 0.4 (0.1-0.6) 06/04/17 07:00 Eos # (Auto) 0.1 (0.0-0.7) 06/04/17 07:00 Baso # (Auto) 0.02 K/mm3 (0.0-2.0) 06/04/17 07:00 Neutrophils % (Manual) 85 % (50.0-70.0) H 06/03/17 19:09 Band Neutrophils % 2 % (0-2) 06/03/17 19:09 Lymphocytes % (Manual) 11 % (22.0-35.0) L 06/03/17 19:09 Monocytes % (Manual) 0 % (1.0-6.0) L 06/03/17 19:09 Basophils % (Manual) 2 % (0.0-1.0) H 06/03/17 19:09 Platelet Evaluation Normal (NORMAL) 06/03/17 19:09 PT 11.8 SECONDS (9.4-12.5) 06/03/17 19:09 INR 1.03 (0.93-1.08) 06/03/17 19:09 APTT 27.2 Seconds (25.1-36.5) 06/03/17 19:09 Sodium 141 mmol/L (132-148) 06/04/17 07:00 Potassium 3.8 mmol/L (3.6-5.0) 06/04/17 07:00 Chloride 107 mmol/L (98-107) 06/04/17 07:00 Carbon Dioxide 26 mmol/L (21-33) 06/04/17 07:00 Anion Gap 12 (10-20) 06/04/17 07:00 BUN 14 mg/dL (7-21) 06/04/17 07:00 Creatinine 0.6 mg/dl (0.7-1.2) L 06/04/17 07:00 Est GFR ( Amer) > 60 06/04/17 07:00 Est GFR (Non-Af Amer) > 60 06/04/17 07:00 Random Glucose 82 mg/dL (70-110) 06/04/17 07:00 Calcium 9.1 mg/dL (8.4-10.5) 06/04/17 07:00 Total Bilirubin 0.5 mg/dL (0.2-1.3) 06/03/17 19:09 AST 32 U/L (14-36) 06/03/17 19:09 ALT 26 U/L (7-56) 06/03/17 19:09 Alkaline Phosphatase 72 U/L (38-126) 06/03/17 19:09 Total Protein 7.5 g/dL (5.8-8.3) 06/03/17 19:09 Albumin 4.2 g/dL (3.0-4.8) 06/03/17 19:09 Globulin 3.2 gm/dL 06/03/17 19:09 Albumin/Globulin Ratio 1.3 (1.1-1.8) 06/03/17 19:09 Lipase 93 U/L (23-300) 06/03/17 19:09 Urine Color Yellow (YELLOW) 06/03/17 19:55 Urine Appearance Sl cloudy (CLEAR) 06/03/17 19:55 Urine pH 5.5 (4.7-8.0) 06/03/17 19:55 Ur Specific [place] >= 1.030 (1.005-1.035) 06/03/17 19:55 Urine Protein Negative mg/dL (<30 mg/dL) 06/03/17 19:55 Urine Glucose (UA) Negative mg/dL (NEGATIVE) 06/03/17 19:55 Urine Ketones 40 mg/dL (NEGATIVE) H 06/03/17 19:55 Urine Blood Small (NEGATIVE) H 06/03/17 19:55 Urine Nitrate Positive (NEGATIVE) H 06/03/17 19:55 Urine Bilirubin Negative (NEGATIVE) 06/03/17 19:55 Urine Urobilinogen 0.2 E.U./dL (<1 E.U./dL) 06/03/17 19:55 Ur Leukocyte Esterase Trace [place]/uL (NEGATIVE) H 06/03/17 19:55 Urine RBC 2 - 5 /hpf (0-2) 06/03/17 19:55 Urine WBC 5 - 10 /hpf (0-6) 06/03/17 19:55 Ur Epithelial Cells 3 - 4 /hpf (0-5) 06/03/17 19:55 Urine Bacteria Many (NEG) 06/03/17 19:55 Urine Other Mucus 06/03/17 19:55 Urine HCG, Qual Negative (NEGATIVE) 06/03/17 19:55 - Hospital Course Hospital Course: Patient is a 56 year old female with past medical history of bladder infection who presented to ED complaining of 4 day history of left lower quadrant abdominal pain associated with a chronic sinus headache which was accompanied by vomiting. Patient also endorsed that for the past month she had been noticing green malodorous vaginal discharge. Upon being admitted to the emergency department, radioimaging ordered revealed a slightly dilated appendix which was evaluated by general surgery; no further management was required considering size of dilation and no signs of acute appendicitis. Patient was also found to have a urinary tract infection evidenced by urinalysis. Patient was placed on antibiotics for her urinary tract infection as well as pain medication for her headaches. The following morning patient states the pain had improved and was similar to the symptoms she had experienced when she had her last urinary tract infection. Further imaging was ordered for patient including CT head for patient's worsening headache as well as CT abdomen pelvis kidney stone protocol considering patient's flank pain and blood present on urinalysis. Both tests yielded negative results. Patient also endorsed sensation of bloating when eating meals. She was advised to follow up with her PMD regarding these symptoms. With patient's symptoms improving through the day patient was discharged with proper medications for her condition as well as with instructions to follow up with her primary care doctor, Dr. Braga. Case discussed and reviewed with Dr. Taylor Discharge Exam - Head Exam Head Exam: ATRAUMATIC, NORMAL INSPECTION, NORMOCEPHALIC - Eye Exam Eye Exam: EOMI, Normal appearance - ENT Exam ENT Exam: Mucous Membranes Moist - Neck Exam Neck exam: Normal Inspection - Respiratory Exam Respiratory Exam: Clear to PA & Lateral, UNREMARKABLE. absent: Rales, Rhonchi, Wheezes - Cardiovascular Exam Cardiovascular Exam: REGULAR RHYTHM, +S1, +S2 - GI/Abdominal Exam GI & Abdominal Exam: Normal Bowel Sounds, Soft, Tenderness (lower left quadrant) , Unremarkable - Back Exam Back exam: NORMAL INSPECTION, tenderness (left flank) - Neurological Exam Neurological exam: Alert, CN II-XII Intact, Oriented x3 - Psychiatric Exam Psychiatric exam: Normal Affect, Normal Mood - Skin Skin Exam: Intact, Normal Color, Warm Discharge Plan - Discharge Medications Prescriptions: metroNIDAZOLE [Flagyl] 500 mg PO BID #14 tab Nitrofurantoin Macrocrystals [Macrobid] 100 mg PO BID #14 cap Phenazopyridine [Pyridium] 200 mg PO TID PRN #6 tab PRN Reason: Urinary Discomt - Follow Up Plan Condition: STABLE Disposition: HOME/ ROUTINE Instructions: Urinary Tract Infection, Adult (DC), Acute Abdominal Pain (DC) Additional Instructions: Follow up with primary care doctor, Dr. Danae Braga, within 1 week Home meds pyridium 100mg TID x 2 days flagyl 500 mg BID x 7 days macrobid 100 BID x 7 days Referrals: Danae Braga, MECHANICAL ENGINEERING PROFESSOR-C [Family Provider] -
--- NOTE | 2017-06-05 10:32 | CON ---
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 White count is between 10 and 5.7, hemoglobin normal. Coags normal. CAT scan has revealed the mid portion of the appendix, seems to be 8 mm, but without inflammation around it. It looks like a fluid filled uterus. The patient is known to have abdominal pain on and off for a while. There was a CAT scan done in 2011, 2013, but also in 02/2017. The patient is postmenopausal, fluid in the uterus. We will ask for transvaginal ultrasound. The appendix size is 8 mm in maximum without inflammation around it. I do not think this is acute appendicitis. IMPRESSION: Abdominal pain, I am not sure the diagnosis. I do not know why postmenopausal woman would have fluid in the uterus and confirmed this with transvaginal ultrasound. I do not think this is appendicitis, however, someone who is coming if a laparoscopy is done, appendix should be removed. Vicente Holley MD
== END 2017-06-04 16:10 | disposition home or self-care (01) ==
LOC: ED 17:51 → ERH 22:44 → 5RNO 06-04 00:11
PROVIDERS: ADMIT Internal Medicine; ATTEND Internal Medicine
DX: N39.0 Urinary tract infection, site not specified (principal); R10.32 Left lower quadrant pain; E86.0 Dehydration; R11.2 Nausea with vomiting, unspecified; R50.9 Fever, unspecified; Z87.440 Personal history of urinary (tract) infections
CPT/HCPCS: 36415; 70450; 71045; 74176; 74177; 80048; 80053; 81001; 83690; 84703; 85025; 85610; 85730; 87070; 87086; 96361; 96365; 96367; 96372; 96375; 96376; 99285; G0378; J0696; J1650; J1885; J2405; J7040; J7120

== ENCOUNTER 2017-06-13 09:25 | Emergency (ER) | payer OTHER ==
--- NOTE | 2017-06-13 09:39 | ED PDOC ---
Arrival/HPI - General Time Seen by Provider: 06/13/17 09:27 Historian: Patient - History of Present Illness Narrative History of Present Illness (Text): 06/13/17 09:39 56yo female with no PMhx who present with complaint of right sided abdominal pain with nausea and diarrhea x 3days. Sates diarrhea started after finishing Flagyl and Macrobid for UTI. She denies vomiting, hematemesis, hematochezia, fever, chills, dysuria, urinary frequency, chest pain, SOB, any other complaint. Past Medical History - Provider Review Nursing Documentation Reviewed: Yes - Past History Past History: No Previous - Infectious Disease Hx of Infectious Diseases: None - Tetanus Immunization Tetanus Immunization: Unknown - Past Medical History Past Medical History: No Previous - Cardiac Hx Cardiac Disorders: No - Pulmonary Hx Respiratory Disorders: No - Neurological Hx Neurological Disorder: No Other/Comment: hx of sinus disease - HEENT Hx HEENT Disorder: No - Renal Hx Renal Disorder: No - Endocrine/Metabolic Hx Endocrine Disorders: No - Hematological/Oncological Hx Blood Disorders: No - Integumentary Hx Dermatological Disorder: No - Musculoskeletal/Rheumatological Hx Musculoskeletal Disorders: No - Gastrointestinal Hx Gastrointestinal Disorders: No - Genitourinary/Gynecological Hx Genitourinary Disorders: Yes Hx Urinary Tract Infection: Yes - Psychiatric Hx Psychophysiologic Disorder: No Hx Depression: No Hx Emotional Abuse: No Hx Physical Abuse: No Hx Substance Use: No - Past Surgical History Past Surgical History: No Previous - Surgical History Hx Section: Yes (x3) - Anesthesia Hx Anesthesia: Yes Hx Anesthesia Reactions: No Hx Malignant Hyperthermia: No - Suicidal Assessment Feels Threatened In Home Enviroment: No Family/Social History - Physician Review Nursing Documentation Reviewed: Yes Family/Social History: Unknown Family HX Smoking Status: Never Smoked Hx Alcohol Use: No Hx Substance Use: No Hx Substance Use Treatment: No Allergies/Home Meds Allergies/Adverse Reactions: Allergies No Known Allergies Allergy (Verified 06/13/17 09:49) Review of Systems - Physician Review All systems were reviewed & negative as marked: Yes - Review of Systems Constitutional: Normal Eyes: Normal ENT: Normal Respiratory: Normal Cardiovascular: Normal Gastrointestinal: Abdominal Pain, Diarrhea, Nausea. absent: Constipation, Vomiting, Hematochezia, Hematemesis Genitourinary Female: Normal Musculoskeletal: Normal Skin: Normal Neurological: Normal Endocrine: Normal Hemo/Lymphatic: Normal Psychiatric: Normal Physical Exam Vital Signs Reviewed: Yes Vital Signs Temp Pulse Resp BP Pulse Ox 06/13/17 12:41 97.8 F 71 16 100/55 L 99 06/13/17 11:38 67 16 120/79 99 06/13/17 09:46 98.1 F 60 18 101/69 97 Temperature: Afebrile Blood Pressure: Normal Pulse: Regular Respiratory Rate: Normal Appearance: Positive for: Well-Appearing, Non-Toxic, Comfortable Pain Distress: None Mental Status: Positive for: Alert and Oriented X 3 - Systems Exam Head: Present: Atraumatic, Normocephalic Pupils: Present: PERRL Extroacular Muscles: Present: EOMI Conjunctiva: Present: Normal Mouth: Present: Moist Mucous Membranes Neck: Present: Normal Range of Motion Respiratory/Chest: Present: Clear to Auscultation, Good Air Exchange. No: Respiratory Distress, Accessory Muscle Use Cardiovascular: Present: Regular Rate and Rhythm, Normal S1, S2. No: Murmurs Abdomen: Present: Tenderness (Diffuse right sided abdominal tenderness), Normal Bowel Sounds, Guarding (Voluntary), Other (soft). No: Distention, Peritoneal Signs, Rebound, McBurney's Point Tender, Rovsing's Sign Present Back: Present: Normal Inspection Upper Extremity: Present: Normal Inspection. No: Cyanosis, Edema Lower Extremity: Present: Normal Inspection. No: Edema Neurological: Present: GCS=15, CN II-XII Intact, Speech Normal Skin: Present: Warm, Dry, Normal Color. No: Rashes Psychiatric: Present: Alert, Oriented x 3, Normal Insight, Normal Concentration Medical Decision Making ED Course and Treatment: 06/13/17 18:37 Pt was in ED for stated history. On re evaluation she notes that her pain resolved and repeat PE was benign. Lab was unremarkable. She have UTI and was given Keflex 500mg rx. C. Diff toxin culture was ordered and pending. Result was DW the pt. she was advised to drink plenty of fluid. Follow up with MR in 3busine ss days for her result. Referred to her PMD. - Lab Interpretations Lab Results: 06/13/17 10:30 06/13/17 10:30 Lab Results 06/13/17 10:30: Sodium 142, Potassium 4.5, Chloride 105, Carbon Dioxide 27, Anion Gap 14, BUN 15, Creatinine 0.6 L, Est GFR ( Amer) > 60, Est GFR ( Non-Af Amer) > 60, Random Glucose 90, Calcium 9.8, Total Bilirubin 0.8, AST 33, ALT 36, Alkaline Phosphatase 68, Total Protein 7.1, Albumin 4.1, Globulin 3.0, Albumin/Globulin Ratio 1.4, Lipase 125 06/13/17 10:30: Urine Color Yellow, Urine Appearance Clear, Urine pH 6.5, Ur Specific [place] 1.015, Urine Protein Negative, Urine Glucose (UA) Negative, Urine Ketones Negative, Urine Blood Small H, Urine Nitrate Negative, Urine Bilirubin Negative, Urine Urobilinogen 0.2, Ur Leukocyte Esterase Small H, Urine RBC 0 - 2, Urine WBC 0 - 2, Ur Epithelial Cells 0 - 2, Urine Bacteria Trace 06/13/17 10:30: PT 12.1, INR 1.05, APTT 31.6 06/13/17 10:30: WBC 4.5 D, RBC 4.22, Hgb 12.7, Hct 38.8, MCV 91.9, MCH 30.1, MCHC 32.7, RDW 13.8, Plt Count 262, MPV 10.3, Gran % 57.4, Lymph % (Auto) 33.2, [place] % (Auto) 6.5 H, Eos % (Auto) 1.8, Baso % (Auto) 1.1, Gran # 2.56, Lymph # ( Auto) 1.5, [place] # (Auto) 0.3, Eos # (Auto) 0.1, Baso # (Auto) 0.05 - Medication Orders Current Medication Orders: Discontinued Medications Famotidine (Pepcid) 20 mg IVP STAT STA Stop: 06/13/17 10:00 Last Admin: 06/13/17 10:23 Dose: 20 mg IVP Administration Document 06/13/17 10:23 MS (Rec: 06/13/17 10:23 MS [id number]) Charges for Administration # of IVP Administrations 1 Sodium Chloride (Sodium Chloride 0.9%) 1,000 mls @ 1,000 mls/hr IV .Q1H STA Stop: 06/13/17 10:58 Last Admin: 06/13/17 10:21 Dose: 1,000 mls/hr eMAR Start Stop Document 06/13/17 10:21 MS (Rec: 06/13/17 10:23 MS [id number]) Intravenous Solution Start Date 06/13/17 Start Time 10:22 End Date 06/13/17 End time 11:22 Total Infusion Time 60 Ketorolac Tromethamine (Toradol) 30 mg IVP STAT STA Stop: 06/13/17 10:00 Last Admin: 06/13/17 10:23 Dose: 30 mg MAR Pain Assessment Document 06/13/17 10:23 MS (Rec: 06/13/17 10:25 MS [id number]) Pain Reassessment Is this a pain reassessment? No Sleep Is patient sleeping during reassessment? No Presence of Pain Presence of Pain Yes Pain Scale Used Pain Scale Used Numeric Location Left, Right or Bilateral Right Upper or Lower Lower Pain Location Body Site Abdomen Description Description Intermittent Intensity of Pain at present 8 Pain Behavior Moaning Guarding Grasping Site IVP Administration Document 06/13/17 10:23 MS (Rec: 06/13/17 10:25 MS [id number]) Charges for Administration # of IVP Administrations 1 Ondansetron HCl (Zofran Inj) 4 mg IVP STAT STA Stop: 06/13/17 10:00 Last Admin: 06/13/17 10:25 Dose: 4 mg IVP Administration Document 06/13/17 10:25 MS (Rec: 06/13/17 10:25 MS [id number]) Charges for Administration # of IVP Administrations 1 Disposition/Present on Arrival - Present on Arrival Any Indicators Present on Arrival: No History of DVT/PE: No History of Uncontrolled Diabetes: No Urinary Catheter: No History Surgical Site Infection Following: None - Disposition Have Diagnosis and Disposition been Completed?: Yes Diagnosis: Abdominal pain, UTI (urinary tract infection) Disposition: HOME/ ROUTINE Disposition Time: 12:20 Patient Plan: Discharge Condition: STABLE Discharge Instructions (ExitCare): Urinary Tract Infections in Adults, Acute Abdomen (Belly Pain), Adult (DC) Additional Instructions: Follow up with your doctor Return to ED for any new or worsening symptoms Prescriptions: Cephalexin [Keflex] 500 mg PO TID #30 capsule Referrals: Danae Braga APN-C [Primary Care Provider] - Follow up with primary Forms: AFFiRiS ([place])
[2017-06-13 09:46] VITALS: BMI 19.8
[2017-06-13] MEDS ORDERED: Sodium Chloride 0.9% 1,000 ML IV STA (09:59)
[2017-06-13 10:39] LABS: BASO # 0.05 K/mm3 (0.0-2.0); BASO % 1.1 % (0.0-3.0); EOS # 0.1 (0.0-0.7); EOS % 1.8 % (1.5-5.0); GRAN # 2.56 (1.4-6.5); GRAN % 57.4 % (50.0-68.0); HEMOGLOBIN 12.7 g/dL (12.0-16.0); LYMPH # 1.5 (1.2-3.4); LYMPH % 33.2 % (22.0-35.0); MEAN CELL VOLUME 91.9 fl (80.0-105.0); MEAN CORPUSCULAR HEMOGLOBIN 30.1 pg (25.0-35.0); MEAN CORPUSCULAR HGB CONC 32.7 g/dl (31.0-37.0); MEAN PLATELET VOLUME 10.3 fl (7.0-11.0); MONO # 0.3 (0.1-0.6); MONO % 6.5 % (1.0-6.0); PH,URINE 6.5 (4.7-8.0); RBC 4.22 10^6/uL (3.5-6.1); RED CELL DISTRIBUTION WIDTH 13.8 % (11.5-14.5); URINE BILIRUBIN NEGATIVE (NEGATIVE); URINE BLOOD SMALL (NEGATIVE); URINE GLUCOSE (UA) NEGATIVE (NEGATIVE); URINE LEUKOCYTE ESTERASE SMALL Leu/uL (NEGATIVE); URINE PROTEIN NEGATIVE mg/dL (<30 mg/dL); URINE UROBILINOGEN 0.2 E.U./dL (<1 E.U./dL); WHITE BLOOD COUNT 4.5 10^3/ul (4.5-11.0)
[2017-06-13 10:40] LABS: URINE APPEARANCE CLEAR (CLEAR); URINE COLOR YELLOW (YELLOW)
[2017-06-13 10:48] LABS: INR 1.05 (0.93-1.08); PARTIAL THROMBOPLASTIN TIME 31.6 Seconds (25.1-36.5); PROTHROMBIN TIME 12.1 SECONDS (9.4-12.5)
[2017-06-13 10:57] LABS: ALB/GLOB RATIO 1.4 (1.1-1.8); ALBUMIN 4.1 g/dL (3.0-4.8); ALT/SGPT 36 U/L (7-56); AST/SGOT 33 U/L (14-36); BLOOD UREA NITROGEN 15 mg/dL (7-21); CALCIUM 9.8 mg/dL (8.4-10.5); GFR AFRICAN-AMERICAN > 60; GFR NON-AFRICAN AMERICAN > 60; LIPASE 125 U/L (23-300)
[2017-06-13 10:59] LABS: URINE BACTERIA TRACE (NEG); URINE EPITHELIAL CELLS 0 - 2 /hpf (0-5); URINE RBC 0 - 2 /hpf (0-2); URINE WBC 0 - 2 /hpf (0-6)
[2017-06-13 11:39] VITALS: RESP 16; O2SAT 99
[2017-06-13 12:42] VITALS: BP 100/55; PULSE 71; TEMP 97.8
== END 2017-06-13 12:42 | disposition home or self-care (01) ==
LOC: ED 09:25
DX: N39.0 Urinary tract infection, site not specified (principal); R10.9 Unspecified abdominal pain
CPT/HCPCS: 80053; 81001; 83690; 85025; 85610; 85730; 87086; 87324; 96361; 96374; 96375; 99284; J1885; J2405; J7040

== ENCOUNTER 2018-07-31 10:41 | Outpatient (CLI) | payer OTHER | END 2018-07-31 10:42 | disposition home or self-care (01) | LOC: RAD 10:41 ==

== ENCOUNTER 2018-08-01 08:32 | Outpatient (CLI) | payer OTHER | END 2018-08-01 08:33 | disposition home or self-care (01) | LOC: LAB 08:32 | DX: N39.0 Urinary tract infection, site not specified (principal) ==

== ENCOUNTER 2018-08-10 09:10 | Outpatient (CLI) | payer OTHER | END 2018-08-10 09:11 | disposition home or self-care (01) | LOC: RAD 09:10 ==